=== PATIENT | male | born 1945 | race Caucasian/White ===

== ENCOUNTER 2017-11-10 15:57 | Inpatient (IN) ==
--- NOTE | 2017-11-10 23:30 | Internal Med History&Physical ---
Date of Encounter: 11/10/17 Time of Encounter: 08:00 Internal Medicine - H&P: HPI Chief complaint: fall History of present illness: Mr. Hollingsworth is a 72 year old male was no significant past medical history who was admitted to [facility] after he sustained a fall out of her wheelchair , his imaging studies revealed displaced right upper extremity fracture, orthopedic was consulted and decision was made that the patient will require open reduction internal fixation, the patient was transferred from [facility] for cardiac clearance , Past Med Surg Social Fam HX - Past Medical History Medical history: other Psychiatric history: no psych history - Social History Smoking Status: Current every day smoker Packs per day: 2 pack Smokeless Tobacco Status: No Alcohol use: none Drug use: none Internal Medicine - H&P: Meds Pregabalin [Lyrica] 300 mg PO BID 11/09/17 [History] OxyCODONE/APAP 5/325 [Percocet 5/325 MG] 1 each PO Q4HR PRN 11/10/17 [History] Zolpidem [Ambien] 5 mg PO HS 11/11/17 [History] Docusate [Colace] 100 mg PO BID capsule 11/13/17 [Rx] MOM Conc [MILK OF MAGNESIA conc] 5 ml PO HS PRN ud.liq 11/13/17 [Rx] OxyCODONE/APAP 5/325 [Percocet 5/325 MG] 1 each PO Q4HR PRN 4 Days #12 tablet [Rx] Silvasorb 1 appl TP DAILY tube 11/13/17 [Rx] 3 Allergy/AdvReac Type Severity Reaction Status Date / Time No Known Allergies Allergy Verified 11/09/17 20:12 All Systems PM: A 10-system review of systems was performed and is negative for pertinent findings except as documented above in the HPI. - Constitutional Vitals: Temp Pulse Resp BP Pulse Ox 98.9 F 75 16 119/54 97 11/10/17 23:23 11/10/17 23:23 11/10/17 23:23 11/10/17 23:23 11/10/17 23:23 Internal Med - H&P Results - Labs CBC & Chem 7: 11/13/17 01:27 11/13/17 01:27 - Assessment and plan (1) Right humeral fracture Status: Acute Assessment and plan: orthopedic was consulted, they requested cardiology clearance prior to proceeding with surgery, cardiology was consulted. Qualifiers: Encounter type: sequela Humerus Location: proximal Fracture type: closed Fracture morphology: other fracture Fracture alignment: displaced Qualified Code(s): S42.291S - Other displaced fracture of upper end of right humerus, sequela (2) DVT prophylaxis Status: Acute Assessment and plan: SC heparin - Time Spent With Patient Total time spent is greater than 50% in coordination of care (as documented) at patient's floor/unit and/or counseling patient:
[2017-11-10] MEDS ORDERED: Acetaminophen 325 MG TABLET PO PRN (23:31)
[2017-11-10] MEDS ORDERED: Naloxone 0.4 MG/ML INJ IVP PRN (23:31)
[2017-11-10] MEDS ORDERED: *HR* HYDROcodone/Acet 5/325 mg TABLET PO PRN (23:31)
[2017-11-10] MEDS ORDERED: 0.9 % Sodium Chloride 1,000 ML IVC SCH (23:45)
[2017-11-11 01:10] LABS: Basophils % 0.4 %; Eosinophils # 0.6 K/mcL (0.0-0.6); Hematocrit 25.5 % (37.5-50.1); Hemoglobin 8.4 g/dL (12.9-16.9); Immature Granulocytes % 1.3 % (0-4); Lymphocytes % 24.7 %; Mean Corpuscular HGB Conc 32.9 g/dL (31.6-35.5); Mean Corpuscular Hemoglobin 29.9 pg (28.0-33.3); Mean Corpuscular Volume 90.7 fL (83.0-100.0); Mean Platelet Volume 9.7 fL (9.4-12.4); Monocytes # 0.6 K/mcL (0.0-1.3); Monocytes % 7.3 %; Neutrophils # 4.8 K/mcL (1.6-8.9); Platelet Count 311 K/mcL (140-400); Red Blood Count 2.81 M/mcL (4.19-5.50); Red Cell Distribution Width 17.7 % (11.5-14.5); Segmented Neutrophils % 59.3 %
[2017-11-11 01:28] LABS: Alanine Aminotransferase 18 Units/L (7-52); Albumin 2.8 g/dL (3.5-5.7); Albumin/Globulin Ratio 0.8 (1.1-2.2); Alkaline Phosphatase 90 Units/L (34-104); Aspartate Amino Transferase 24 Units/L (13-39); BUN/Creatinine Ratio 27 (6-26); Bilirubin,Total 0.7 mg/dL (0.3-1.0); Blood Urea Nitrogen 21 mg/dL (8-23); Calcium 8.1 mg/dL (8.6-10.3); Carbon Dioxide 25 mEq/L (23-29); Chloride 104 mEq/L (98-107); Chol/HDL Ratio 4.4 (0-4.9); Cholesterol 136 mg/dL (< 200); Globulin 3.5 g/dL (2.4-3.5); Glucose 103 mg/dL (70-105); HDL Cholesterol 31 mg/dL (40-59); LDL Cholesterol,Calculated 87 mg/dL (0-99); Osmolality,Calculated 281 (280-300); Phosphorous 3.3 mg/dL (2.7-4.5); Potassium 4.4 mEq/L (3.5-5.1); Sodium 134 mEq/L (136-145); Total Protein 6.3 g/dL (6.4-8.9); Triglycerides 92 mg/dL (< 150); eGFR For African Americans > 60 (> 60); eGFR For Non-African Americans > 60 (> 60)
[2017-11-11 04:00] LABS: Bilirubin,Urine Negative (Negative); Blood,Urine Negative (Negative); Clarity,Urine Clear (Clear); Color,Urine Yellow (Yellow); Glucose,Urine (UA) Normal (Normal); Ketones,Urine Negative (Negative); Leukocyte Esterase,Urine Negative (Negative); Nitrite,Urine Negative (Negative); Protein,Urine Negative (Neg-Trace); Specific Gravity,Urine 1.011 (1.010-1.025); Urobilinogen,Urine Normal (Normal)
[2017-11-11] MEDS ORDERED: *HR* Heparin 5,000 UNIT/ML VIAL SQ SCH (06:00)
--- NOTE | 2017-11-11 06:50 | Orthopedic Consult Note ---
Date of Encounter: 11/11/17 Time of Encounter: 06:49 History of Present Illness HPI: Mr. Hollingsworth is a 72 year old male Status post fall out of her wheelchair yesterday patient was seen and admitted to [facility] history and physical examination was reviewed from the [facility] admission from yesterday. In the admission notes there is no discussion of cardiac issues. Patient only complains of pain in his arm. Denies any chest pain shortness of breath. Physical exam alert and oriented 3 Right upper extremity osseous swelling decreased motion secondary to pain Neurovascular intact Hematocrit 25 Patient has a displaced right upper extremity fracture. Requiring open reduction internal fixation. Patient is scheduled for surgery today. We reviewed the risks and benefits as well as recovery. All questions were answered. The patient agreed to this treatment plan and appeared to understand the plan is reviewed. Past Med Surg Social Fam HX - Past Medical History Medical history: other Psychiatric history: no psych history - Social History Smoking Status: Current every day smoker Packs per day: 2 pack Smokeless Tobacco Status: No Alcohol use: none Drug use: none Medications and Allergies Pregabalin [Lyrica] 300 mg PO BID 11/09/17 [History] OxyCODONE/APAP 5/325 [Percocet 5/325 MG] 1 each PO Q4HR PRN 11/10/17 [History] 3 Allergy/AdvReac Type Severity Reaction Status Date / Time No Known Allergies Allergy Verified 11/09/17 20:12 All Systems Reviewed: The remainder of the systems were reviewed and are negative Physical Exam - Constitutional Vitals: Temp Pulse Resp BP Pulse Ox 98.7 F 78 16 120/55 97 11/11/17 03:50 11/11/17 03:50 11/11/17 03:50 11/11/17 03:50 11/11/17 03:50 Results - Labs Result Diagrams: 11/11/17 00:29 11/11/17 00:29 Labs: Abnormal lab results RBC 2.81 M/mcL (4.19-5.50) L 11/11/17 00:29 Hgb 8.4 g/dL (12.9-16.9) L 11/11/17 00:29 Hct 25.5 % (37.5-50.1) L 11/11/17 00:29 RDW 17.7 % (11.5-14.5) H 11/11/17 00:29 APTT 24.0 Seconds (26.0-36.0) L 11/11/17 00:29 Sodium 134 mEq/L (136-145) L 11/11/17 00:29 BUN/Creatinine Ratio 27 (6-26) H 11/11/17 00:29 Calcium 8.1 mg/dL (8.6-10.3) L 11/11/17 00:29 Serum Total Protein 6.3 g/dL (6.4-8.9) L 11/11/17 00:29 Albumin 2.8 g/dL (3.5-5.7) L 11/11/17 00:29 Albumin/Globulin Ratio 0.8 (1.1-2.2) L 11/11/17 00:29 HDL Cholesterol 31 mg/dL (40-59) L 11/11/17 00:29 H & H 11/11/17 Range/Units 00:29 Hgb 8.4 L (12.9-16.9) g/dL Hct 25.5 L (37.5-50.1) % All other labs normal. Consult Discharge Plan - Plan Referrals: Kris Goetz MD [Primary Care Provider] -
[2017-11-11] MEDS ORDERED: *HR* Propofol 200 MG/20 ML VIAL IVP ONE (07:13)
[2017-11-11] MEDS ORDERED: *HR* FentaNYL (PF) 100 MCG/2 ML VIAL ONE (07:13)
[2017-11-11] MEDS ORDERED: *HR* Midazolam HCl 2 MG/2 ML VIAL ONE (07:13)
[2017-11-11] MEDS ORDERED: Lidocaine -MPF 2% 2 ML VIAL ONE (07:14)
[2017-11-11] MEDS ORDERED: *HR* Succinylcholine 200 MG/10 ML VIAL IVP ONE (07:14)
[2017-11-11] MEDS ORDERED: Albuterol 2.5 MG/3 ML NEBULIZER IH ONE ×2 (07:17→10:49)
--- NOTE | 2017-11-11 07:20 | Anesthesia Evaluation PreOp ---
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 History: Denies Any Significant HX Other Medical History: Denies Any Significant HX Anesthesia History: No Prior Anesthetic Complications Alcohol Use: none Drug use: none Medications and Allergies Pregabalin [Lyrica] 300 mg PO BID 11/09/17 [History] OxyCODONE/APAP 5/325 [Percocet 5/325 MG] 1 each PO Q4HR PRN 11/10/17 [History] 3 Allergy/AdvReac Type Severity Reaction Status Date / Time No Known Allergies Allergy Verified 11/09/17 20:12 - Meds/Allergy Pre-op Review Medications Reviewed: Yes Allergies Reviewed: Yes Beta Blockers on Current Med List: No Anesthesia Results - Labs 11/11/17 00:29 11/11/17 00:29 - Imaging EKG: pending Anesthesia Exam Vital Signs/O2 Sat/Glucose, Most Current Temp Pulse Resp BP Pulse Ox 11/11/17 07:04 97.9 F 71 18 153/74 98 11/11/17 03:50 98.7 F 78 16 120/55 97 Height: 5'7 Weight: 210 lbs NPO (# of Hours): MN Pain Scale: 0 - HEENT Pupil (Motor): Pupils equal, EOMI Oral Opening: Greater than 3 - PUBLIC HEALTH PROFESSOR LOC: Oriented PUBLIC HEALTH PROFESSOR Motor: Normal RUE, Normal LUE, Normal RLE, Normal LLE, Normal Face PUBLIC HEALTH PROFESSOR Sensory: Normal: RUE, LUE, RLE, LLE, Face - Cardiac Rhythm: Regular Murmur: None JVD: No Carotid Bruit: No - Pulmonary Breath Sounds: bilateral Clear Respiratory Effort: Symmetrical Anesthesia Assess/Plan ASA Score: 3 (Anemia) Modified Thais Scale for Level of Consciousness: Cooperative, oriented, and tranquil Anesthetic Plan: General, Regional Monitoring Plan: Standard Monitors Recovery Plan: PACU (Discussed GA and RA, agrees to proceed)
[2017-11-11] MEDS ORDERED: Dexamethasone 4 MG/ML VIAL ONE (07:33)
[2017-11-11] MEDS ORDERED: ROPIVACAINE HCL/PF 0.5% 30 ML VIAL ONE (07:34)
--- NOTE | 2017-11-11 08:03 | Anesthesia Procedures ---
Date of Encounter: 11/11/17 Time of Encounter: 07:20 Procedures: Anesthesia - Nerve Block Procedure Date: 11/11/17 Time: 07:45 Pre-op Diagnosis: Fracture Rt Humerus Surgical Procedure: ORIF Rt Humerus Checklist: Correct Patient Identifier Correct side: Right Blood Thinner: No Monitor Applied: EKG, BP, Pulse Oximetry Supplemental Oxygen via Nasal Cannula (L/min): 2 Sedation: Versed (mg): 1 Sedation: Fentanyl (mcg): 50 Indication: Post Op Analgesia Pre-op Neuro Deficits: No Block Type: Supraclavicular Catheter placed: No Depth at skin (cm): 3 Sterile Technique: Yes Ultrasound used: Yes Anatomy identified: Yes Visual spread of Local: Yes Neuro Stimulation: No Blood on Needle Aspiration: No Smooth Injection of Local: Yes Pain with Injection of Local: No Prep: Chlorhexadine Needle: 22 x 50 mm Stimuplex Local: Ropivacaine Volume (cc): 30 Number of Attempts: 1 Complications: None/effective block Vitals: Vital Signs/O2 Sat/Glucose, Most Current Temp Pulse Resp BP Pulse Ox 11/11/17 07:45 81 16 143/64 97 11/11/17 07:04 97.9 F 71 18 153/74 98
[2017-11-11] MEDS ORDERED: *HR* OxyCODONE Immed Rel 5 MG TABLET PO PRN (08:26)
[2017-11-11] MEDS ORDERED: *HR* FentaNYL (PF) 100 MCG/2 ML VIAL IVP PRN (08:26)
[2017-11-11] MEDS ORDERED: Ondansetron 4 MG/2 ML VIAL IVP ONE (08:26)
[2017-11-11] MEDS ORDERED: Pregabalin 75 MG CAPSULE PO SCH (09:00)
--- NOTE | 2017-11-11 09:21 | Orthopedic Operative Note ---
Date of procedure: 11/11/17 Pre-op diagnosis: Displaced comminuted right proximal humerus fracture Post-op diagnosis: same Procedure: Procedure: Right open reduction internal fixation Humerus proximal humerus Estimated blood loss: 100 cc Hardware: Synthes 8 hole proximal humeral locking plate, 3 3.5 cortical screws , 9 3.5 Locking screws 5 Arthrex cerclage fiber tapes Procedural Notes: Significant only displaced comminuted proximal humeral fracture. Long oblique fragments Operative procedure: The patient was brought to the operating room and placed on the operating room table. After general anesthesia was administered the operative arm was prepped and draped in the sterile surgical fashion The patient received IV antibiotics prior to skin incision. A standard extended deltopectoral approach was made to the humerus, the incision is made to the skin and subcutaneous tissue. Hemostasis was obtained with Bovie cautery. Using careful blunt dissection the deltopectoral interval was developed, exposing the fracture site. Patient had multiple fragments. There were reduced individually and secured with 4 Arthrex cerclage fiber tapes. The fifth one was used to secure the plate around the fracture site. Using fluoroscopic assistance a Synthes 8 hole proximal humeral locking plate was approximated to the anterior lateral surface was fixed distally in compression with one 3.5 cortical screw. It was fixed proximally with 5 3.5 locking screws. Fixation was completed with distal fixation with 3.5 locking screws and compression screws. Position of the hardware as well as fracture reduction found to be acceptable on fluoroscopic exam evaluation. The wound was irrigated with an antibacterial solution followed by saline. The PA close the shoulder, the deltopectoral closed with a running #1 PDS suture case tissues irrigated and closed deep with 0 PDS suture superficially with 0 PDS suture was closed with skin papo. patient was placed in a sterile dressing and brace. The patient was extubated, and then transferred to the recovery room in stable condition. Anesthesia: GETA Surgeon: Pedro Martines Was there an real estate legal assistant present: Yes Take Off Worker: Sierra Forbes Estimated blood loss (cc): 100 Condition: stable Disposition: PACU
--- NOTE | 2017-11-11 10:03 | Event Note ---
Date of Encounter: 11/11/17 Time of Encounter: 09:59 DBX used Slingshot. No shoulder motion. Bone Stimulator. Appt set for POW#1 - with Lulú Lu
[2017-11-11 10:43] LABS: Hematocrit 27.2 % (37.5-50.1); Hemoglobin 8.3 g/dL (12.9-16.9)
[2017-11-11] MEDS ORDERED: MOM Conc 10 ML UD.LIQ PO PRN (10:49)
[2017-11-11] MEDS ORDERED: Naloxone 0.4 MG/ML INJ IVP PRN (10:49)
[2017-11-11] MEDS ORDERED: Sennosides 8.6 MG TABLET PO PRN (10:49)
[2017-11-11] MEDS ORDERED: Ringers Solution, Lactated 1,000 ML IVC SCH (10:49)
[2017-11-11] MEDS ORDERED: traMADol 50 MG TABLET PO PRN (10:49)
[2017-11-11] MEDS ORDERED: *HR* OxyCODONE/APAP 5/325 TABLET PO PRN (10:49)
[2017-11-11] MEDS ORDERED: Ondansetron 4 MG/2 ML VIAL IVP PRN (10:49)
[2017-11-11] MEDS ORDERED: Temazepam 15 MG CAPSULE PO PRN (10:49)
--- NOTE | 2017-11-11 10:50 | Anesthesia Evaluation Post Op ---
Date of Encounter: 11/11/17 Time of Encounter: 11:00 - Vital Signs Vital Signs: Vital Signs/O2 Sat/Glucose, Most Current Temp Pulse Resp BP Pulse Ox 11/11/17 10:20 97.8 F 82 20 111/55 96 11/11/17 10:10 82 20 124/57 96 11/11/17 10:00 85 20 136/68 100 11/11/17 09:50 97.8 F 83 16 143/62 99 11/11/17 07:45 81 16 143/64 97 11/11/17 07:04 97.9 F 71 18 153/74 98 - Lungs Lungs: Clear Ascult./Percussion - Airway Airway: Non-obstructed - Cardiovascular Regular Rate - Mental Status Mental Status: Alert & Oriented, Answers Appropriately - Pain Pain Scale: 0 - Nausea Vomiting Nausea Vomiting: Not Present - Hydration Hydration: Ice chips - Discharge PostOp Status: Transfer Patient to floor
[2017-11-11] MEDS ORDERED: OXYCODONE Oral CONC 10 MG/0.5 ML ORAL.SYG SL PRN (12:35)
[2017-11-11] MEDS: CeFAZolin Pre 2,000 MG/100 ML 2,000 MG/100 ML BAG IVPB SCH ×2 (13:08→15:22)
--- NOTE | 2017-11-11 20:38 | Electrocardiograph Report ---
[address] [address] Test Date: 2017-11-11 Pat Name: Felix Hollingsworth Department: 101 Room: [facility] Gender: Statistician: [facility] : 1945 Requested By: Estela Benavides Order Number: [id number] Reading MD: Robert Carter Measurements Intervals [place] Rate: 70 P: 41 NC: 199 QRS: 53 QRSD: 122 T: 20 QT: 388 QTc: 409 Interpretive Statements SINUS RHYTHM Electronically Signed On 11-11-2017 20:36:18 EDT by Robert Carter
[2017-11-11] MEDS: Pregabalin 75 MG CAPSULE PO SCH (20:53)
--- NOTE | 2017-11-12 00:02 | Internal Med Progress Note ---
Date of Encounter: 11/11/17 Time of Encounter: 18:00 - Assessment and plan (1) Right humeral fracture Status: Acute Qualifiers: Encounter type: sequela Humerus Location: proximal Fracture type: closed Fracture morphology: other fracture Fracture alignment: displaced Qualified Code(s): S42.291S - Other displaced fracture of upper end of right humerus, sequela (2) Acute blood loss anemia Status: Acute Assessment and plan: I do not know what his baseline hemoglobin is. However, he lost some blood before, during and after the surgery. I will call it acute blood loss anemia. Will repeat his hemoglobin tomorrow morning. (3) DVT prophylaxis Status: Acute - Time Spent With Patient Total time spent is greater than 50% in coordination of care (as documented) at patient's floor/unit and/or counseling patient: 25 - 35 minutes - Subjective Interval history: The patient underwent open reduction internal fixation of proximal right humerus fracture today. His pain seems to be under control. No distress is seen. Denies difficulty breathing, coughing and wheezing. - Constitutional Vitals: Temp Pulse Resp BP Pulse Ox 98.8 F 87 18 114/58 98 11/11/17 19:28 11/11/17 19:28 11/11/17 19:28 11/11/17 19:28 11/11/17 19:28 General appearance: Present: A&O X 3, no acute distress, answers questions appropriately - Respiratory Respiratory exam: Present: CTAB. Absent: accessory muscle use, rales, rhonchi, wheezes - Cardiovascular Cardiovascular exam: Present: RRR, +S1, +S2. Absent: diastolic murmur, gallop, rubs, systolic murmur - GI/Abdominal GI/Abdominal exam: Present: normal bowel sounds, soft, no peritoneal signs. Absent: distended, tenderness - Extremities Exam Additional comments: Varicis surgical dressing/cast applied to his right arm. Internal Medicine: Result - Labs CBC & Chem 7: 11/13/17 01:27 11/13/17 01:27 Labs: Short CBC 11/11/17 11/11/17 Range/Units 00:29 10:12 WBC 8.0 (4.3-11.1) K/mcL Hgb 8.4 L 8.3 L (12.9-16.9) g/dL Hct 25.5 L 27.2 L (37.5-50.1) % Plt Count 311 (140-400) K/mcL Neutrophils # 4.8 (1.6-8.9) K/mcL BMP 11/11/17 00:29 Sodium 134 L Potassium 4.4 Chloride 104 Carbon Dioxide 25 BUN 21 Creatinine 0.78 Glucose 103 Calcium 8.1 L Cardiac Enzymes 11/11/17 11/11/17 11/11/17 Range/Units 00:29 05:34 10:12 Troponin I < 0.03 < 0.03 < 0.03 (< 0.04) ng/mL Liver Function 11/11/17 Range/Units 00:29 Total Bilirubin 0.7 (0.3-1.0) mg/dL AST 24 (13-39) Units/L ALT 18 (7-52) Units/L Alkaline Phosphatase 90 (34-104) Units/L Albumin 2.8 L (3.5-5.7) g/dL Urine 11/11/17 Range/Units 03:45 Urine Color Yellow (Yellow) Urine Clarity Clear (Clear) Urine pH 7.0 (5.0-8.0) pH Units Ur Specific [place] 1.011 (1.010-1.025) Urine Protein Negative (Neg-Trace) mg/dL Urine Glucose (UA) Normal (Normal) mg/dL - Impressions Impressions Shoulder X-Ray 11/11/17 07:57 IMPRESSION: Status post ORIF of right humeral fracture with intact hardware and near anatomic alignment. D/ / Maxwell Lares MD / Maxwell Lares MD Interpreting Provider: Maxwell Lares MD Fluoroscopy 11/11/17 08:20 IMPRESSION: Intraprocedural fluoroscopic spot images as above. See separate procedure report for more information. D/ / Fernando Jalloh MD / Fernando Jalloh MD Interpreting Provider: Fernando Jalloh MD - VTE Documentation of Mechanical Device: Venous foot pump, device Consult Discharge Plan - Plan Additional Instructions: WOUND CARE - SEE WOUND CARE CONSULT Referrals: Kris Goetz MD [Family Provider] - Prescriptions: OxyCODONE/APAP 5/325 [Percocet 5/325 MG] 1 each PO Q4HR PRN 4 Days #12 tablet PRN Reason: Moderate Pain 4-6
[2017-11-12] MEDS: *HR* OxyCODONE Immed Rel 5 MG TABLET PO PRN ×4 (08:57→22:50)
[2017-11-12] MEDS: Pregabalin 75 MG CAPSULE PO SCH ×2 (08:57→21:31)
[2017-11-12 17:21] LABS: Bilirubin,Urine Negative (Negative); Blood,Urine Negative (Negative); Clarity,Urine Clear (Clear); Color,Urine Yellow (Yellow); Glucose,Urine (UA) Normal (Normal); Ketones,Urine Negative (Negative); Leukocyte Esterase,Urine Negative (Negative); Nitrite,Urine Negative (Negative); Protein,Urine Negative (Neg-Trace); Urobilinogen,Urine Normal (Normal)
--- NOTE | 2017-11-12 21:42 | Internal Med Progress Note ---
Date of Encounter: 11/12/17 Time of Encounter: 19:00 - Assessment and plan (1) Right humeral fracture Status: Acute Assessment and plan: Surgically repaired yesterday. See orthopedic surgery notes.He's waiting for placement in an extended-care facility. Qualifiers: Encounter type: sequela Humerus Location: proximal Fracture type: closed Fracture morphology: other fracture Fracture alignment: displaced Qualified Code(s): S42.291S - Other displaced fracture of upper end of right humerus, sequela (2) Acute blood loss anemia Status: Acute Assessment and plan: This is secondary to right humerus fracture. Will repeat his hemoglobin tomorrow morning. The patient is hemodynamically stable at this time. (3) DVT prophylaxis Status: Acute - Time Spent With Patient Total time spent is greater than 50% in coordination of care (as documented) at patient's floor/unit and/or counseling patient: - Subjective Interval history: The patient feels good. His right arm pain is under control. Denies chest pain. Denies difficulty breathing, coughing and wheezing. Denies abdominal pain, nausea and vomiting. He makes good amounts of urine. - Constitutional Vitals: Temp Pulse Resp BP Pulse Ox 98.4 F 76 16 130/74 97 11/12/17 18:54 11/12/17 18:54 11/12/17 18:54 11/12/17 18:54 11/12/17 18:54 General appearance: Present: A&O X 3, no acute distress, answers questions appropriately - Respiratory Respiratory exam: Present: CTAB. Absent: accessory muscle use, rales, rhonchi, wheezes - Cardiovascular Cardiovascular exam: Present: RRR, +S1, +S2. Absent: diastolic murmur, gallop, rubs, systolic murmur - GI/Abdominal GI/Abdominal exam: Present: normal bowel sounds, soft, no peritoneal signs. Absent: distended, tenderness - Extremities Exam Additional comments: A surgical dressing/cast is applied to the right arm. Internal Medicine: Result - Labs CBC & Chem 7: 11/13/17 01:27 11/13/17 01:27 Labs: Short CBC 11/12/17 Range/Units 06:32 Hgb 7.0 L (12.9-16.9) g/dL Hct 22.0 L (37.5-50.1) % Urine 05/24/18 Range/Units 17:05 Urine Color Yellow (Yellow) Urine Clarity Clear (Clear) Urine pH 6.0 (5.0-8.0) pH Units Ur Specific [place] 1.020 (1.010-1.025) Urine Protein Negative (Neg-Trace) mg/dL Urine Glucose (UA) Normal (Normal) mg/dL - VTE Documentation of Mechanical Device: Venous foot pump, device Consult Discharge Plan - Plan Additional Instructions: WOUND CARE - SEE WOUND CARE CONSULT Referrals: Kris Goetz MD [Family Provider] - Prescriptions: OxyCODONE/APAP 5/325 [Percocet 5/325 MG] 1 each PO Q4HR PRN 4 Days #12 tablet PRN Reason: Moderate Pain 4-6
[2017-11-13 02:27] LABS: Hematocrit 24.3 % (37.5-50.1); Hemoglobin 7.7 g/dL (12.9-16.9)
[2017-11-13 02:46] LABS: BUN/Creatinine Ratio 23 (6-26); Blood Urea Nitrogen 22 mg/dL (8-23); Calcium 8.1 mg/dL (8.6-10.3); Carbon Dioxide 25 mEq/L (23-29); Chloride 104 mEq/L (98-107); Glucose 110 mg/dL (70-105); Osmolality,Calculated 284 (280-300); Potassium 4.4 mEq/L (3.5-5.1); Sodium 135 mEq/L (136-145); eGFR For African Americans > 60 (> 60); eGFR For Non-African Americans > 60 (> 60)
[2017-11-13] MEDS: Pregabalin 75 MG CAPSULE PO SCH (09:25)
[2017-11-13] MEDS ORDERED: Silvasorb 44.4 ML TUBE TP SCH (11:30)
[2017-11-13] MEDS: *HR* OxyCODONE Immed Rel 5 MG TABLET PO PRN (12:25)
[2017-11-13 15:40] VITALS: BP 124/73
--- NOTE | 2017-11-13 18:23 | Discharge Summary ---
Orders not resulted at time of discharge: Pending orders 11/11/17 XR humerus LT [XR] Routine 11/11/17 07:40 Red Blood Cells [BBK] Stat Type and Screen [BBK] Stat 11/11/17 07:44 US anesthesia pain block [US] Routine 11/12/17 06:00 ECG 12 lead ECG [ECG] AM 0600 Date of Encounter: 11/13/17 Time of Encounter: 18:20 - Discharge Diagnosis (1) Right humeral fracture Priority: Primary Status: Acute Qualifiers: Encounter type: sequela Humerus Location: proximal Fracture type: closed Fracture morphology: other fracture Fracture alignment: displaced Qualified Code(s): S42.291S - Other displaced fracture of upper end of right humerus, sequela Hospital course: Mr. Hollingsworth is a 72 year old male.We admitted this patient to the hospital shortly after he had experienced a fall from a wheel-chair. She sustained displaced right proximal humerus fracture. He underwent the open reduction and internal fixation see orthopaedics notes. He did well during and after the surgery. He doesn't have any other significant medical problems.We discharged her to a nursing home facility. Discharge discussed with: patient, family, nurse, case management - Time Spent with Patient Total time spent providing and/or coordinating discharge services: Greater than 30 minutes (35 minutes.) - Discharge Medications Prescriptions: OxyCODONE/APAP 5/325 [Percocet 5/325 MG] 1 each PO Q4HR PRN 4 Days #12 tablet PRN Reason: Moderate Pain 4-6 Home Medications: Pregabalin [Lyrica] 300 mg PO BID 11/09/17 [History] Zolpidem [Ambien] 5 mg PO HS 11/11/17 [History] Docusate [Colace] 100 mg PO BID capsule 11/13/17 [Rx] OxyCODONE/APAP 5/325 [Percocet 5/325 MG] 1 each PO Q4HR PRN 4 Days #12 tablet [Rx] Silvasorb 1 appl TP DAILY tube 11/13/17 [Rx] Aspirin 81 mg PO DAILY 11/23/17 [History] Protein Supplement [Promod] 30 ml PO DAILY 11/23/17 [History] Duloxetine HCl [Cymbalta] 60 mg PO DAILY 11/24/17 [History] Allergies/Adverse Reactions: 3 Allergy/AdvReac Type Severity Reaction Status Date / Time No Known Allergies Allergy Verified 11/23/17 21:01 Date of admission: 11/10/17 23:31 Primary care physician: PCP NONE Consults: 11/10/17 23:34 Consult to Physician [CONS] Routine Consulting Provider: Min Roland Reason for Consult: cardiology clearance Time Notified: 23:35 Call Completed: No 11/11/17 10:49 Consult to Occupational Therapy [CONS] Routine Comment: post shoulder surgery Reason for Consult: post shoulder surgery Does patient have active BEDREST order?: No Is patient medically & hemodynamically stable?: Yes Consult to Physical Therapy [CONS] Routine Comment: post shoulder surgery Reason for Consult: post shoulder surgery Does patient have active BEDREST order?: No Is patient medically & hemodynamically stable?: Yes RT Post Op Consult [CONS] Routine 11/11/17 17:18 Consult to [place] Warm Up [CONS] Routine Reason for SW Consult: discharge planning 11/12/17 16:45 Consult to Wound Care [CONS] Routine Reason for Consult: Multiple wounds; a snf bed-bound resident. Time Notified: 16:45 Call Completed: Yes Discharging clinician: Camilo Escobar Anticipated date of discharge: 11/13/17 - Constitutional Vitals: Temp Pulse Resp BP Pulse Ox 98.5 F 87 16 124/73 96 11/13/17 14:10 11/13/17 14:10 11/13/17 14:10 11/13/17 14:10 11/13/17 14:10 General appearance: Present: A&O X 3, no acute distress, answers questions appropriately - Respiratory Respiratory exam: Present: CTAB. Absent: rales, wheezes, tachypnea - Cardiovascular Cardiovascular exam: Present: RRR. Absent: diastolic murmur, gallop, systolic murmur - GI/Abdominal GI/Abdominal exam: Present: normal bowel sounds, soft, no peritoneal signs. Absent: distended, tenderness - Patient Status Disposition: Transfer SNF Condition: Fair Functional capacity at discharge: wheelchair bound Overall status at discharge: patient is not back to baseline - Discharge Instructions Follow Up With: Kris Goetz MD [Family Provider] - Additional Instructions: WOUND CARE - SEE WOUND CARE CONSULT - Diet and Activity Activity: increase activity as tolerated - VTE Documentation of Mechanical Device: Venous foot pump, device
--- NOTE | 2017-11-13 18:58 | Physician Discharge Referral ---
ExtendedCare Referral Info Transfer To: SNF Provider in Charge after Transfer: Other Institutional Level of Care: Skilled - Diagnosis (1) Right humeral fracture Status: Acute Prognosis: Fair Aware of Diagnosis: Patient, Family Aware of Prognosis: Patient, Family - Transfer Medications Prescriptions: OxyCODONE/APAP 5/325 [Percocet 5/325 MG] 1 each PO Q4HR PRN 4 Days #12 tablet PRN Reason: Moderate Pain 4-6 Home Medications: Pregabalin [Lyrica] 300 mg PO BID 11/09/17 [History] OxyCODONE/APAP 5/325 [Percocet 5/325 MG] 1 each PO Q4HR PRN 11/10/17 [History] Zolpidem [Ambien] 5 mg PO HS 11/11/17 [History] Docusate [Colace] 100 mg PO BID capsule 11/13/17 [Rx] MOM Conc [MILK OF MAGNESIA conc] 5 ml PO HS PRN ud.liq 11/13/17 [Rx] OxyCODONE/APAP 5/325 [Percocet 5/325 MG] 1 each PO Q4HR PRN 4 Days #12 tablet [Rx] Silvasorb 1 appl TP DAILY tube 11/13/17 [Rx] Allergies/Adverse Reactions: 3 Allergy/AdvReac Type Severity Reaction Status Date / Time No Known Allergies Allergy Verified 11/09/17 20:12 - Respiratory Orders Smoking Cessation: Smoking cessation has been advised. For more information, call the [place] Tobacco Quit Line at 8-685-BBND-NOW. - Rehabiliation Orders Rehab Potential: Fair CERTIFICATION: I certify that the transfer of the above named patient to an Extended Care Facility is necessary for the continuing treatment of the diagnosis listed. The above information is true and accurate reflection of patient's current condition. Confidential - Redisclosure prohibited without a patient's written consent.
== END 2017-11-13 19:27 | DRG 494 ==
LOC: 3NENU → SUATTDRO 23:31
PROVIDERS: ADMIT Internal Medicine Nephrology; ATTEND Internal Medicine

== ENCOUNTER 2017-11-23 22:04 | Inpatient (IN) ==
[2017-11-24 01:26] LABS: Basophils % 0.3 %; Eosinophils # 0.6 K/mcL (0.0-0.6); Eosinophils % 5.9 %; Hematocrit 19.9 % (37.5-50.1); Hemoglobin 6.2 g/dL (12.9-16.9); Immature Granulocytes % 1.6 % (0-4); Lymphocytes # 1.7 K/mcL (0.6-4.6); Lymphocytes % 16.5 %; Mean Corpuscular HGB Conc 31.2 g/dL (31.6-35.5); Mean Corpuscular Hemoglobin 29.2 pg (28.0-33.3); Mean Corpuscular Volume 93.9 fL (83.0-100.0); Mean Platelet Volume 9.3 fL (9.4-12.4); Monocytes # 0.6 K/mcL (0.0-1.3); Monocytes % 5.2 %; Neutrophils # 7.4 K/mcL (1.6-8.9); Nucleated Red Blood Cells 0.2 /100 WBC (0); Platelet Count 403 K/mcL (140-400); Red Blood Count 2.12 M/mcL (4.19-5.50); Red Cell Distribution Width 18.4 % (11.5-14.5); Segmented Neutrophils % 70.5 %
[2017-11-24 01:31] LABS: INR 1.1; Prothrombin Time 11.8 Seconds (9.4-12.1)
[2017-11-24 01:47] LABS: Alanine Aminotransferase 13 Units/L (7-52); Albumin 2.7 g/dL (3.5-5.7); Albumin/Globulin Ratio 0.8 (1.1-2.2); Alkaline Phosphatase 115 Units/L (34-104); Aspartate Amino Transferase 17 Units/L (13-39); BUN/Creatinine Ratio 24 (6-26); Bilirubin,Total 0.5 mg/dL (0.3-1.0); Blood Urea Nitrogen 18 mg/dL (8-23); Calcium 8.1 mg/dL (8.6-10.3); Carbon Dioxide 20 mEq/L (23-29); Chloride 106 mEq/L (98-107); Globulin 3.2 g/dL (2.4-3.5); Glucose 104 mg/dL (70-105); Osmolality,Calculated 280 (280-300); Potassium 3.9 mEq/L (3.5-5.1); Sodium 134 mEq/L (136-145); Total Protein 5.9 g/dL (6.4-8.9); eGFR For African Americans > 60 (> 60); eGFR For Non-African Americans > 60 (> 60)
[2017-11-24] MEDS ORDERED: Acetaminophen 325 MG TABLET PO PRN (02:19)
[2017-11-24] MEDS ORDERED: Naloxone 0.4 MG/ML INJ IVP PRN (02:19)
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
[2017-11-24 03:43] LABS: % Iron Saturation 11 % (20-55); Ferritin 108 ng/ml (20-250); Iron 32 mcg/dL (65-175); Transferrin 204 mg/dL (203-362)
[2017-11-24 04:12] LABS: Folate 18.2 ng/mL (3.0-16.0)
[2017-11-24] MEDS ORDERED: 0.9 % Sodium Chloride 250 ML ONE (04:18)
[2017-11-24] MEDS ORDERED: Pantoprazole 40 MG VIAL IVP SCH (06:30)
[2017-11-24] MEDS: Pantoprazole 40 MG VIAL IVP SCH ×2 (07:19→17:18)
[2017-11-24] MEDS: Nicotine 14 MG PATCH.TD24 TD SCH (07:29)
[2017-11-24 11:08] LABS: Basophils % 0.4 %; Eosinophils # 0.5 K/mcL (0.0-0.6); Eosinophils % 4.9 %; Hemoglobin 7.2 g/dL (12.9-16.9); Immature Granulocytes % 1.5 % (0-4); Lymphocytes # 1.5 K/mcL (0.6-4.6); Lymphocytes % 14.7 %; Mean Corpuscular HGB Conc 31.3 g/dL (31.6-35.5); Mean Corpuscular Hemoglobin 28.8 pg (28.0-33.3); Mean Platelet Volume 9.4 fL (9.4-12.4); Monocytes # 0.5 K/mcL (0.0-1.3); Monocytes % 5.3 %; Neutrophils # 7.3 K/mcL (1.6-8.9); Platelet Count 383 K/mcL (140-400); Red Cell Distribution Width 17.8 % (11.5-14.5); Segmented Neutrophils % 73.2 %
[2017-11-24 11:31] LABS: BUN/Creatinine Ratio 22 (6-26); Blood Urea Nitrogen 16 mg/dL (8-23); Calcium 8.3 mg/dL (8.6-10.3); Carbon Dioxide 22 mEq/L (23-29); Chloride 109 mEq/L (98-107); Glucose 94 mg/dL (70-105); Osmolality,Calculated 285 (280-300); Potassium 4.4 mEq/L (3.5-5.1); Sodium 137 mEq/L (136-145); eGFR For African Americans > 60 (> 60); eGFR For Non-African Americans > 60 (> 60)
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
[2017-11-24] MEDS ORDERED: Polyethylene Glycol 3350 255 GM POWDER PO ONE (13:49)
[2017-11-24 16:39] LABS: Hematocrit 22.4 % (37.5-50.1)
[2017-11-24] MEDS ORDERED: SODIUM CHLORIDE/NAHCO3/KCL/PEG 4,000 ML SOLN.RECON PO ONE (17:00)
[2017-11-24] MEDS: *HR* OxyCODONE/APAP 5/325 TABLET PO PRN ×2 (17:52→22:08)
--- NOTE | 2017-11-24 18:55 | Event Note ---
Date of Encounter: 11/24/17 Time of Encounter: 11:00 Patient evaluated by nocturnalist earlier this morning and by myself EGD/colonoscopy scheduled for 11/25/17 per GI for acute blood loss anemia workup
[2017-11-24] MEDS: Pregabalin 75 MG CAPSULE PO SCH (22:08)
[2017-11-25 01:21] LABS: Hematocrit 20.9 % (37.5-50.1); Hemoglobin 6.6 g/dL (12.9-16.9)
[2017-11-25] MEDS: Pantoprazole 40 MG VIAL IVP SCH ×2 (06:02→16:26)
[2017-11-25] MEDS: Pregabalin 75 MG CAPSULE PO SCH ×2 (07:33→20:55)
[2017-11-25] MEDS: Nicotine 14 MG PATCH.TD24 TD SCH (07:34)
--- NOTE | 2017-11-25 10:44 | Electrocardiograph Report ---
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
[2017-11-25] MEDS ORDERED: Propofol 500 MG/50 ML INFUS..BTL ONE (12:14)
[2017-11-25] MEDS ORDERED: Lidocaine -MPF 2% 2 ML VIAL ONE (12:14)
--- NOTE | 2017-11-25 12:37 | Anesthesia Evaluation PreOp ---
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 leg Amp.) Alcohol Use: none Drug use: none Medications and Allergies Pregabalin [Lyrica] 300 mg PO BID 11/09/17 [History] Zolpidem [Ambien] 5 mg PO HS 11/11/17 [History] Docusate [Colace] 100 mg PO BID capsule 11/13/17 [Rx] OxyCODONE/APAP 5/325 [Percocet 5/325 MG] 1 each PO Q4HR PRN 4 Days #12 tablet [Rx] Silvasorb 1 appl TP DAILY tube 11/13/17 [Rx] Aspirin 81 mg PO DAILY 11/23/17 [History] Protein Supplement [Promod] 30 ml PO DAILY 11/23/17 [History] Duloxetine HCl [Cymbalta] 60 mg PO DAILY 11/24/17 [History] 3 Allergy/AdvReac Type Severity Reaction Status Date / Time No Known Allergies Allergy Verified 11/23/17 21:01 - Meds/Allergy Pre-op Review Medications Reviewed: Yes Allergies Reviewed: Yes Beta Blockers on Current Med List: No Anesthesia Results - Labs 11/25/17 00:58 11/24/17 10:46 11/24/17 EV/EV echocardiogram Impressions: LVEF 60%. Mild left ventricular diastolic dysfunction. Mild concentric left ventricular hypertrophy. Normal right ventricular structure and function. Mild mitral regurgitation. Severely calcified aortic valve leaflets. Severe aortic stenosis. PV 4.6m/s, MG 47 mmHg, DI 0.27, JIMENEZ 0.85cm2 Mild-moderate aortic regurgitation. No pulmonary hypertension on this study - no significant TR gradient. Abnormal findings communicated to ordering provider. 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
[2017-11-25] MEDS ORDERED: Furosemide 20 MG/2 ML VIAL IVP ONE (15:43)
--- NOTE | 2017-11-25 16:11 | Internal Med Progress Note ---
Date of Encounter: 11/25/17 Time of Encounter: 11:00 - Assessment and plan (1) Anemia Current Visit: Yes Status: Acute Assessment and plan: Acute on chronic anemia of unknown etiology of normocytic anemia. Anemia present prior to surgery but no record of hemoglobin prior to 2 weeks ago ; no significant drop in hemoglobin immediately after surgery. Guaiac positive. Patient was transfused 1 unit of packed red blood cells and hemoglobin today 6.6 Will transfuse an addition two units of packed red blood cells GI was consulted and colonoscopy showed no acute bleeding. Will continue to monitor Qualifiers: Anemia type: unspecified type Qualified Code(s): D64.9 - Anemia, unspecified (2) Heart murmur, systolic Current Visit: Yes Status: Acute Assessment and plan: Patient with new systolic murmur suspect secondary to acute on chronic blood loss anemia Echocardiogram on 11/24/17 showed LVEF of 60% with mild left ventricle diastolic dysfunction with severe aortic stenosis with a PV of 4.6 m/s and MG 47 mmHg Will consult cardiology in appreciate any further recommendations. (3) Tobacco use Current Visit: Yes Status: Acute Assessment and plan: smokes 2ppd. Nicotine patch given. (4) Leg ulcer, left Current Visit: Yes Status: Acute Assessment and plan: multiple ulcers that have been there for about 3 months and family is unsure if they are getting better. custodial has been attending to the wounds. Wound care consulted. Qualifiers: Non-pressure ulcer stage: limited to breakdown of skin Qualified Code(s): L97.921 - Non-pressure chronic ulcer of unspecified part of left lower leg limited to breakdown of skin (5) DVT prophylaxis Current Visit: Yes Status: Acute Assessment and plan: ICDs. - Time Spent With Patient Total time spent is greater than 50% in coordination of care (as documented) at patient's floor/unit and/or counseling patient: - Subjective Interval history: Patient this morning schedule for colonoscopy Patient also with drop in hemoglobin - Constitutional Vitals: Temp Pulse Resp BP Pulse Ox 98.7 F 72 16 106/55 98 11/25/17 14:31 11/25/17 14:31 11/25/17 14:31 11/25/17 14:31 11/25/17 14:31 General appearance: Present: no acute distress - Respiratory Respiratory exam: Present: CTAB. Absent: accessory muscle use, rales, rhonchi, wheezes - Cardiovascular Cardiovascular exam: Present: RRR, +S1, +S2, systolic murmur. Absent: diastolic murmur, gallop, rubs - Skin Skin exam: Present: pallor Internal Medicine: Result - Labs CBC & Chem 7: 11/25/17 00:58 11/24/17 10:46 Labs: Short CBC 11/24/17 11/25/17 Range/Units 15:59 00:58 Hgb 7.0 L 6.6 L (12.9-16.9) g/dL Hct 22.4 L 20.9 L (37.5-50.1) % - ABG Interpretation ABG results: PT/INR, D-dimer PT 11.8 Seconds (9.4-12.1) 11/24/17 01:15 - VTE Documentation of Mechanical Device: Venous foot pump, device Consult Discharge Plan - Plan Referrals: Kris Goetz MD [Family Provider] - Ludwin Mendez MD [Primary Care Provider] -
[2017-11-25 23:09] LABS: Hematocrit 26.1 % (37.5-50.1); Hemoglobin 8.4 g/dL (12.9-16.9)
[2017-11-26 03:30] LABS: Hematocrit 28.2 % (37.5-50.1)
[2017-11-26 03:33] LABS: Hemoglobin 8.9 g/dL (12.9-16.9)
[2017-11-26] MEDS: Pantoprazole 40 MG VIAL IVP SCH (05:23)
[2017-11-26 06:54] LABS: Hematocrit 26.6 % (37.5-50.1); Hemoglobin 8.6 g/dL (12.9-16.9)
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
[2017-11-26 10:06] LABS: Basophils % 0.5 %; Eosinophils # 0.5 K/mcL (0.0-0.6); Hematocrit 27.6 % (37.5-50.1); Hemoglobin 8.8 g/dL (12.9-16.9); Immature Granulocytes % 0.8 % (0-4); Lymphocytes # 1.3 K/mcL (0.6-4.6); Lymphocytes % 16.6 %; Mean Corpuscular HGB Conc 31.9 g/dL (31.6-35.5); Mean Corpuscular Hemoglobin 28.8 pg (28.0-33.3); Mean Corpuscular Volume 90.2 fL (83.0-100.0); Mean Platelet Volume 9.3 fL (9.4-12.4); Monocytes # 0.5 K/mcL (0.0-1.3); Monocytes % 6.1 %; Neutrophils # 5.6 K/mcL (1.6-8.9); Platelet Count 368 K/mcL (140-400); Red Blood Count 3.06 M/mcL (4.19-5.50); Red Cell Distribution Width 18.3 % (11.5-14.5)
[2017-11-26 10:25] LABS: BUN/Creatinine Ratio 19 (6-26); Blood Urea Nitrogen 16 mg/dL (8-23); Calcium 8.2 mg/dL (8.6-10.3); Carbon Dioxide 22 mEq/L (23-29); Chloride 110 mEq/L (98-107); Glucose 92 mg/dL (70-105); Osmolality,Calculated 289 (280-300); Potassium 4.2 mEq/L (3.5-5.1); Sodium 139 mEq/L (136-145); eGFR For African Americans > 60 (> 60); eGFR For Non-African Americans > 60 (> 60)
[2017-11-26 10:40] VITALS: BP 130/73
[2017-11-26] MEDS: Nicotine 14 MG PATCH.TD24 TD SCH (10:43)
[2017-11-26] MEDS: Pregabalin 75 MG CAPSULE PO SCH (10:44)
[2017-11-26] MEDS: *HR* OxyCODONE/APAP 5/325 TABLET PO PRN ×2 (10:59→16:45)
[2017-11-26 11:24] LABS: Hematocrit 27.4 % (37.5-50.1); Hemoglobin 8.6 g/dL (12.9-16.9)
--- NOTE | 2017-11-26 12:32 | Event Note ---
Date of Encounter: 11/26/17 Time of Encounter: 12:30 - Cardiology Event Note Discussed and reviewed with Dr. Carter, in setting of recent anemia and blood loss recommend follow-up in outpatient setting for further workup and evaluation regarding severe aortic stenosis if patient desires. Again at that juncture can consider catheterization and potential surgical intervention versus TAVR. Follow-up arranged. We will sign off. Reconsult as needed.
--- NOTE | 2017-11-26 13:01 | Physician Discharge Referral ---
ExtendedCare Referral Info Institutional Level of Care: Skilled - Diagnosis (1) Anemia Status: Acute (2) Heart murmur, systolic Status: Acute (3) Tobacco use Status: Acute (4) Leg ulcer, left Status: Acute (5) DVT prophylaxis Status: Acute - Transfer Medications Prescriptions: OxyCODONE/APAP 5/325 [Percocet 5/325 MG] 1 each PO Q4HR PRN 4 Days #12 tablet PRN Reason: Moderate Pain 4-6 Pregabalin [Lyrica] 300 mg PO BID 3 Days #6 capsule Home Medications: Zolpidem [Ambien] 5 mg PO HS 11/11/17 [History] Docusate [Colace] 100 mg PO BID capsule 11/13/17 [Rx] Silvasorb 1 appl TP DAILY tube 11/13/17 [Rx] Aspirin 81 mg PO DAILY 11/23/17 [History] Protein Supplement [Promod] 30 ml PO DAILY 11/23/17 [History] Duloxetine HCl [Cymbalta] 60 mg PO DAILY 11/24/17 [History] OxyCODONE/APAP 5/325 [Percocet 5/325 MG] 1 each PO Q4HR PRN 4 Days #12 tablet [Rx] Pregabalin [Lyrica] 300 mg PO BID 3 Days #6 capsule 11/26/17 [Rx] Allergies/Adverse Reactions: 3 Allergy/AdvReac Type Severity Reaction Status Date / Time No Known Allergies Allergy Verified 11/23/17 21:01 - Respiratory Orders Smoking Cessation: Smoking cessation has been advised. For more information, call the [place] Tobacco Quit Line at 8-383-HCYC-NOW. CERTIFICATION: I certify that the transfer of the above named patient to an Extended Care Facility is necessary for the continuing treatment of the diagnosis listed. The above information is true and accurate reflection of patient's current condition. Confidential - Redisclosure prohibited without a patient's written consent.
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
== END 2017-11-26 17:03 | DRG 812 ==
LOC: 3ANU → SUATTDRO 11-24 00:58
PROVIDERS: ADMIT Internal Medicine; ATTEND Hospitalist
PROC: ENDOEBX (2017-11-25 13:15)

== ENCOUNTER 2018-09-24 18:31 | Inpatient (IN) ==
[2018-09-24] MEDS ORDERED: Acetaminophen 325 MG TABLET PO PRN (23:23)
[2018-09-24] MEDS ORDERED: Naloxone 0.4 MG/ML INJ IVP PRN (23:23)
[2018-09-24] MEDS ORDERED: Ondansetron 4 MG/2 ML VIAL IVP PRN (23:23)
[2018-09-24] MEDS ORDERED: Ipratropium/Albuterol Neb 3 ML IH PRN (23:28)
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
[2018-09-25] MEDS: *HR* Heparin 5,000 UNIT/ML VIAL SQ SCH ×2 (00:37→05:39)
[2018-09-25] MEDS: *HR* OxyCODONE/APAP 5/325 TABLET PO PRN ×2 (00:37→16:50)
[2018-09-25] MEDS: 0.9 % Sodium Chloride w KCl 20 MEQ/1,000 ML MLS IVC SCH ×2 (00:38→15:22)
[2018-09-25 01:43] LABS: Alanine Aminotransferase 13 Units/L (7-52); Albumin 2.7 g/dL (3.5-5.7); Albumin/Globulin Ratio 0.8 (1.1-2.2); Alkaline Phosphatase 70 Units/L (34-104); Aspartate Amino Transferase 21 Units/L (13-39); BUN/Creatinine Ratio 38 (6-26); Bilirubin,Total 0.3 mg/dL (0.3-1.0); Blood Urea Nitrogen 32 mg/dL (8-23); Calcium 8.2 mg/dL (8.6-10.3); Carbon Dioxide 24 mEq/L (23-29); Chloride 106 mEq/L (98-107); Chol/HDL Ratio 4.4 (0-4.9); Cholesterol 92 mg/dL (< 200); Globulin 3.5 g/dL (2.4-3.5); Glucose 141 mg/dL (70-105); HDL Cholesterol 21 mg/dL (40-59); LDL Cholesterol,Calculated 42 mg/dL (0-99); Osmolality,Calculated 297 (280-300); Phosphorous 3.1 mg/dL (2.7-4.5); Potassium 3.8 mEq/L (3.5-5.1); Sodium 139 mEq/L (136-145); Total Protein 6.2 g/dL (6.4-8.9); Triglycerides 146 mg/dL (< 150); eGFR For Non-African Americans > 60 (> 60)
[2018-09-25 02:15] LABS: Basophils % 0.3 %; Eosinophils # 0.5 K/mcL (0.0-0.6); Eosinophils % 4.3 %; Hematocrit 22.4 % (37.5-50.1); Hemoglobin 6.9 g/dL (12.9-16.9); Immature Granulocytes % 2.5 % (0-4); Lymphocytes # 2.2 K/mcL (0.6-4.6); Mean Corpuscular HGB Conc 30.8 g/dL (31.6-35.5); Mean Corpuscular Hemoglobin 25.8 pg (28.0-33.3); Mean Corpuscular Volume 83.9 fL (83.0-100.0); Mean Platelet Volume 10.1 fL (9.4-12.4); Monocytes # 0.7 K/mcL (0.0-1.3); Monocytes % 6.5 %; Neutrophils # 7.4 K/mcL (1.6-8.9); Nucleated Red Blood Cells 0.2 /100 WBC (0); Platelet Count 296 K/mcL (140-400); Red Blood Count 2.67 M/mcL (4.19-5.50); Red Cell Distribution Width 18.6 % (11.5-14.5); Segmented Neutrophils % 66.4 %
[2018-09-25] MEDS: Vitamin B Complex/Vit C/Vit E 1 EACH TABLET PO SCH (08:42)
[2018-09-25] MEDS: Desitin (Zinc Oxide) 56 GM TUBE TP SCH (08:42)
[2018-09-25] MEDS ORDERED: Aspirin 81 MG TAB.CHEW PO SCH (09:00)
[2018-09-25 09:31] LABS: Bilirubin,Urine Negative (Negative); Blood,Urine Negative (Negative); Clarity,Urine Clear (Clear); Color,Urine Yellow (Yellow); Glucose,Urine (UA) Normal (Normal); Ketones,Urine Negative (Negative); Leukocyte Esterase,Urine Negative (Negative); Nitrite,Urine Negative (Negative); Protein,Urine Negative (Neg-Trace); Specific Gravity,Urine 1.012 (1.010-1.025); Urobilinogen,Urine Normal (Normal)
[2018-09-25] MEDS ORDERED: 0.9 % Sodium Chloride 250 ML ONE (10:08)
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
--- NOTE | 2018-09-25 17:03 | Event Note ---
Date of Encounter: 09/25/18 Time of Encounter: 17:00 Patient was seen and examined. Admitted by one of my colleagues overnight. Please see H&P for details. Here with weakness and AMS. AMS is a non issue at the moment. Patient noted to have a hgb of 6.9 this am. Transfusing him PRBCs. FOBT is ordered. EGD and colonoscopy unremarkable last November 2017. Cardiology evaluating for elevated trops and severe .
[2018-09-25] MEDS: Pantoprazole 40 MG VIAL IVP SCH (18:38)
[2018-09-25] MEDS ORDERED: *HR* OxyCODONE/APAP 5/325 TABLET PO ONE (23:56)
[2018-09-26] MEDS: Pantoprazole 40 MG VIAL IVP SCH ×2 (05:26→18:07)
[2018-09-26] MEDS: *HR* OxyCODONE/APAP 5/325 TABLET PO PRN (05:26)
[2018-09-26 07:23] LABS: Basophils % 0.2 %; Eosinophils # 0.3 K/mcL (0.0-0.6); Eosinophils % 4.2 %; Hematocrit 26.4 % (37.5-50.1); Hemoglobin 7.8 g/dL (12.9-16.9); Immature Granulocytes % 3.5 % (0-4); Lymphocytes # 1.2 K/mcL (0.6-4.6); Lymphocytes % 15.1 %; Mean Corpuscular HGB Conc 29.5 g/dL (31.6-35.5); Mean Corpuscular Hemoglobin 26.5 pg (28.0-33.3); Mean Corpuscular Volume 89.8 fL (83.0-100.0); Mean Platelet Volume 9.9 fL (9.4-12.4); Monocytes # 0.5 K/mcL (0.0-1.3); Monocytes % 6.1 %; Neutrophils # 5.7 K/mcL (1.6-8.9); Platelet Count 287 K/mcL (140-400); Red Blood Count 2.94 M/mcL (4.19-5.50); Red Cell Distribution Width 17.9 % (11.5-14.5); Segmented Neutrophils % 70.9 %
--- NOTE | 2018-09-26 07:34 | Internal Med Progress Note ---
Hospitalist Progress Note - Encounter Date of Encounter: 09/26/18 Time of Encounter: 07:32 - Subjective Interval History: Patient was seen and examined. Admitted by one of my colleagues yesterday for weakness and altered mental status. Mental status is worse than yesterday when I saw him. He is on A/O x1. Ex at bedside says last week he [facility] Not sure what was done about that. He has had no fever here. CT head unremarkable. CXR negative for pneumonia. Has a chronic cough. He was noted to have a hemoglobin of less than 7. And was transfused 2 units. I put him on IV PPI stopped his aspirin and heparin subcutaneous. He did have positive FOBT. EGD and colonoscopy unremarkable last November 2017. Cardiology evaluated for severe . Also had elevated troponins of 0.04 which has trended down. - Exam Vitals: Temp Pulse Resp BP Pulse Ox 97.9 F 97 16 198/72 70 09/26/18 04:04 09/26/18 04:04 09/26/18 04:04 09/26/18 04:04 09/26/18 04:04 Exam: GEN: NAD CVS: RRR. S1, S2, No m/r/g RESP: CTAB ABD: Soft, NT, ND, +BS EXT: No edema. 2+ DP. No rashes NEURO: Nonfocal. A/O x1 - Assessment and Plan (1) Severe aortic stenosis Current Visit: Yes Status: Chronic Assessment and Plan: Seen by cardiology. We can possibly contact cardiology again once he seen by GI. (2) Pressure injury of right ischium, stage 3 Current Visit: Yes Status: Chronic Assessment and Plan: Wound Care (3) Acute encephalopathy Current Visit: Yes Status: Acute Assessment and Plan: CT head and urinalysis are negative. CXR negative for pneumonia.. Mental status is worse than yesterday when I saw him. He is on A/O x1. Ex at bedside says last week he [facility] a [facility] Not sure what was done about that. He has had no fever here. Has a chronic cough but as mentioned CXR is negative. No leukocytosis. I have stopped oxycodone as he has received a couple of doses of that. Will check TSH, Vit B12, folate. (4) Dehydration Current Visit: Yes Status: Acute Assessment and Plan: Diuretics have been held. I stopped his IV fluids yesterday. We will continue to monitor. Follow-up on labs this morning. (5) DVT prophylaxis Current Visit: Yes Status: Acute Assessment and Plan: Stopped heparin subcutaneous and put him on SCDs. (6) Acute blood loss anemia Current Visit: No Status: Acute Assessment and Plan: Patient hemoglobin is less than 7 was transfused 1 unit PRBCs yesterday. Hgb 7.8 this am. I put him on IV PPI. Positive FOBT. GI is consulted. NPO after midnight. Seems to have had issues with low hemoglobin in the past medical history low hemoglobin above 8.9 that is in our record. EGD and colonoscopy unremarkable last November 2017. On iron supplements. - Time Spent with Patient Total time spent is greater than 50% in coordination of care (as documented) at patient's floor/unit and/or counseling patient: Internal Medicine: Result - Labs CBC & Chem 7: 09/26/18 06:53 09/26/18 06:53 Labs: Cardiac Enzymes 09/25/18 Range/Units 08:38 Troponin I < 0.03 (< 0.04) ng/mL Urine 09/25/18 Range/Units 08:54 Urine Color Yellow (Yellow) Urine Clarity Clear (Clear) Urine pH 6.0 (5.0-8.0) pH Units Ur Specific [place] 1.012 (1.010-1.025) Urine Protein Negative (Neg-Trace) mg/dL Urine Glucose (UA) Normal (Normal) mg/dL Consult Discharge Plan - Plan Referrals: Osbaldo Forman MD [Primary Care Provider] -
[2018-09-26 07:40] LABS: BUN/Creatinine Ratio 23 (6-26); Blood Urea Nitrogen 17 mg/dL (8-23); Calcium 8.5 mg/dL (8.6-10.3); Carbon Dioxide 25 mEq/L (23-29); Chloride 109 mEq/L (98-107); Glucose 122 mg/dL (70-105); Magnesium 2.2 mg/dL (1.6-2.6); Osmolality,Calculated 299 (280-300); Potassium 3.8 mEq/L (3.5-5.1); Sodium 143 mEq/L (136-145); eGFR For Non-African Americans > 60 (> 60)
[2018-09-26] MEDS: Vitamin B Complex/Vit C/Vit E 1 EACH TABLET PO SCH (08:32)
[2018-09-26] MEDS: Desitin (Zinc Oxide) 56 GM TUBE TP SCH (08:33)
--- NOTE | 2018-09-26 08:34 | Electrocardiograph Report ---
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
[2018-09-26] MEDS ORDERED: *HR* HYDROcodone/Acet 5/325 mg TABLET PO ONE (15:29)
[2018-09-26] MEDS: Pregabalin 75 MG CAPSULE PO SCH (20:17)
[2018-09-26] MEDS ORDERED: MENTHOL TP SCH (21:00)
[2018-09-27 03:53] LABS: Basophils % 0.2 %; Eosinophils # 0.3 K/mcL (0.0-0.6); Eosinophils % 3.7 %; Hematocrit 26.9 % (37.5-50.1); Immature Granulocytes % 2.3 % (0-4); Lymphocytes # 1.8 K/mcL (0.6-4.6); Lymphocytes % 20.2 %; Mean Corpuscular HGB Conc 29.7 g/dL (31.6-35.5); Mean Corpuscular Hemoglobin 26.8 pg (28.0-33.3); Mean Corpuscular Volume 90.3 fL (83.0-100.0); Mean Platelet Volume 9.9 fL (9.4-12.4); Monocytes # 0.6 K/mcL (0.0-1.3); Monocytes % 7.2 %; Neutrophils # 5.9 K/mcL (1.6-8.9); Nucleated Red Blood Cells 0.2 /100 WBC (0); Platelet Count 301 K/mcL (140-400); Red Blood Count 2.98 M/mcL (4.19-5.50); Red Cell Distribution Width 18.3 % (11.5-14.5); Segmented Neutrophils % 66.4 %
[2018-09-27 04:11] LABS: BUN/Creatinine Ratio 16 (6-26); Blood Urea Nitrogen 12 mg/dL (8-23); Calcium 8.4 mg/dL (8.6-10.3); Carbon Dioxide 24 mEq/L (23-29); Chloride 111 mEq/L (98-107); Glucose 92 mg/dL (70-105); Magnesium 2.2 mg/dL (1.6-2.6); Osmolality,Calculated 293 (280-300); Potassium 3.6 mEq/L (3.5-5.1); Sodium 142 mEq/L (136-145); eGFR For Non-African Americans > 60 (> 60)
[2018-09-27 04:26] LABS: Thyroid Stimulating Hormone 1.843 mcIU/mL (0.340-5.600)
[2018-09-27 04:38] LABS: Folate > 22.3 ng/mL (3.0-16.0); Vitamin B12 1384 pg/mL (250-1100)
[2018-09-27] MEDS: Pantoprazole 40 MG VIAL IVP SCH ×2 (05:08→17:30)
--- NOTE | 2018-09-27 07:35 | Event Note ---
Date of Encounter: 09/27/18 Time of Encounter: 07:33 Patient was seen and examined. I agree with the progress note as written by the resident physician. Mental status is better. Remains afebrile Admitted by one of my colleagues for weakness and altered mental status. Ex said last week he had a fever [facility] to 103 [facility]. Not sure what was done about that. He has had no fever here. CT head unremarkable. CXR negative for pneumonia. Has a chronic cough. He was noted to have a hemoglobin of less than 7 on admission. He was transfused 2 units. I put him on IV PPI and stopped his aspirin and heparin subcutaneous. He did have positive FOBT. EGD and colonoscopy unremarkable last November 2017. Cardiology evaluated for severe . Also had elevated troponins of 0.04 which has trended down. GEN: NAD CVS: RRR. S1, S2, systolic murmur heard throughout RESP: CTAB ABD: Soft, NT, ND, +BS EXT: No edema. 2+ DP. No rashes NEURO: Nonfocal. A/O x2 Monitor H/H NPO To be seen by GI On IV PPI On iron supplements Continue to hold sedatives Mental status better but still not at baseline. May have to see if his mental status improves later in the day vs. the morning. Cardiology will be contacted regarding AVR/ischemic work up once GI cleared him. Resume home meds
--- NOTE | 2018-09-27 07:59 | Internal Med Progress Note ---
<Odilon Gan M - Last Filed: 09/27/18 10:29> Hospitalist Progress Note - Encounter Date of Encounter: 09/27/18 - Exam Vitals: Temp Pulse Resp BP Pulse Ox 98.5 F 87 12 136/58 96 09/27/18 07:41 09/27/18 07:41 09/27/18 07:41 09/27/18 07:41 09/27/18 07:41 - Assessment and Plan (1) Severe aortic stenosis Current Visit: Yes Status: Chronic (2) Pressure injury of right ischium, stage 3 Current Visit: Yes Status: Chronic (3) Acute encephalopathy Current Visit: Yes Status: Acute (4) Dehydration Current Visit: Yes Status: Acute (5) DVT prophylaxis Current Visit: Yes Status: Acute (6) Acute blood loss anemia Current Visit: No Status: Acute (7) Metabolic encephalopathy Current Visit: Yes Status: Acute - Time Spent with Patient Total time spent is greater than 50% in coordination of care (as documented) at patient's floor/unit and/or counseling patient: Internal Medicine: Result - Labs CBC & Chem 7: 09/27/18 03:23 09/27/18 03:23 Labs: Short CBC 09/27/18 Range/Units 03:23 WBC 8.9 (4.3-11.1) K/mcL Hgb 8.0 L (12.9-16.9) g/dL Hct 26.9 L (37.5-50.1) % Plt Count 301 (140-400) K/mcL Neutrophils # 5.9 (1.6-8.9) K/mcL BMP 09/27/18 03:23 Sodium 142 Potassium 3.6 Chloride 111 H Carbon Dioxide 24 BUN 12 Creatinine 0.76 Glucose 92 Calcium 8.4 L Consult Discharge Plan - Plan Referrals: Osbaldo Forman MD [Primary Care Provider] - <Em Lux N - Last Filed: 09/27/18 16:37> Hospitalist Progress Note - Encounter Date of Encounter: 09/27/18 Time of Encounter: 07:59 - Subjective Interval History: Mr. Hollingsworth is a 73-year old male who was admitted to [facility] for evaluation of altered mental status and acute kidney injury. He was also found to have acute anemia, for which he was transfused 1 unit PRBC. On evaluation today, patient is extremely somnolent and difficult to wake. He denies any pain, but is unable to provide much information other than that due to falling asleep. Nursing staff reports no acute overnight events. - Exam Vitals: Temp Pulse Resp BP Pulse Ox 98.5 F 87 12 136/58 96 09/27/18 07:41 09/27/18 07:41 09/27/18 07:41 09/27/18 07:41 09/27/18 07:41 Exam: GENERAL: Adult male sleeping in bed in no acute distress. He wakes to tactile stimulation, but falls asleep quickly when trying to answer questions. HEENT: Atraumatic and normocephalic. CARDIOVASCULAR: Regular rate and rhythm. S1 and S2 present. No murmurs, gallops, or rubs. RESPIRATORY: Clear to auscultation bilaterally. Chest rises and falls symmetrically without accessory muscle use. GASTROINTESTINAL: Abdomen is soft, nontender, nondistended. Bowel sounds present x4 quadrants. EXTREMITIES: No clubbing, cyanosis, or edema. SKIN: Warm, dry, and intact. NEUROLOGIC: Patient is unable to identify the day of the week or what month it is. He is hypersomnolent and unable to cooperate with exam. - Assessment and Plan (1) Acute blood loss anemia Current Visit: No Status: Acute Assessment and Plan: Suspect secondary to GI bleed. Hemoglobin on initial presentation of 6.9, at which time patient was noted to have a positive hemoccult. Patient received 1 unit PRBC, with appropriate improvement in hemoglobin. Morning laboratory studies demonstrate stable hemoglobin of 8.0. GI consult today recommended EGD and colonoscopy tomorrow. - Continue to monitor and trend hemoglobin and hematocrit, with repeat transfusion if indicated. - Bowel preparation for endoscopy tomorrow per GI recommendations. - Continue IV protonix 40mg BID. (2) Acute encephalopathy Current Visit: Yes Status: Acute Assessment and Plan: Unclear etiology. Initial workup at outside ED included CT head, CXR, and urinalysis, which were all unremarkable. On evaluation this morning, patient is extremely somnolent and difficult to wake. He is unable to answer what day or month it is, and quickly falls asleep after being asked a question. Nursing staff reports that they were unable to wake the patient for his morning medications, and patient's medications that could be contributing to this have been held. Serum ammonia found to be WNL. Family members at the bedside state that he is very somnolent "all the time", but are unable to speculate how long this has been occurring. Stat ABG was ordered, as patient was becoming increasingly difficult to wake; however, prior to this being done, nursing staff reported that the patient was wake and conversant. Plan: - Continue to hold medications that may increase patient's somnolence, including pregabalin and oxycodone. - If patient becomes unarousable again, consider stat ABG. - Consider neurology consult if patient continues to be altered. (3) Severe aortic stenosis Current Visit: Yes Status: Chronic Assessment and Plan: Severe aortic stenosis demonstrated on prior echocardiogram. Cardiology did evaluate patient, and recommended consideration of AVR once current issues resolve. - Consider repeat cardiology consultation after completion of GI workup and stabilization of acute anemia. 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 (5) DVT prophylaxis Current Visit: Yes Status: Acute Assessment and Plan: - Pharmacologic prophylaxis held secondary to acute anemia and suspected GI bleed; continue with SCDs. - Time Spent with Patient Total time spent is greater than 50% in coordination of care (as documented) at patient's floor/unit and/or counseling patient: Internal Medicine: Result - Labs CBC & Chem 7: 09/27/18 03:23 09/27/18 03:23 Labs: Short CBC 09/27/18 Range/Units 03:23 WBC 8.9 (4.3-11.1) K/mcL Hgb 8.0 L (12.9-16.9) g/dL Hct 26.9 L (37.5-50.1) % Plt Count 301 (140-400) K/mcL Neutrophils # 5.9 (1.6-8.9) K/mcL BMP 09/27/18 03:23 Sodium 142 Potassium 3.6 Chloride 111 H Carbon Dioxide 24 BUN 12 Creatinine 0.76 Glucose 92 Calcium 8.4 L
[2018-09-27] MEDS: Pregabalin 75 MG CAPSULE PO SCH ×2 (09:00→10:27)
[2018-09-27] MEDS: Furosemide 40 MG TABLET PO SCH ×3 (10:15→15:28)
[2018-09-27] MEDS: Vitamin B Complex/Vit C/Vit E 1 EACH TABLET PO SCH ×3 (10:15→15:28)
[2018-09-27] MEDS: Desitin (Zinc Oxide) 56 GM TUBE TP SCH (10:17)
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
[2018-09-27 16:46] LABS: ABG Base Excess 1 mEq/L (-2 to 3); ABG HCO3 26 mEq/L (21-27); ABG Oxygen Saturation 97 % (95-98); ABG PCO2 41 mmHg (35-45); ABG PH 7.41 pH Units (7.32-7.45); ABG PO2 92 mmHg (85-104); ABG TCO2 27 mEq/L (20-26)
[2018-09-27] MEDS ORDERED: SODIUM CHLORIDE/NAHCO3/KCL/PEG 4,000 ML SOLN.RECON PO ONE (17:00)
[2018-09-28] MEDS: Pantoprazole 40 MG VIAL IVP SCH ×2 (05:16→18:01)
[2018-09-28 05:27] LABS: Basophils % 0.4 %; Eosinophils # 0.3 K/mcL (0.0-0.6); Hematocrit 27.2 % (37.5-50.1); Hemoglobin 8.1 g/dL (12.9-16.9); Immature Granulocytes % 2.4 % (0-4); Lymphocytes # 1.9 K/mcL (0.6-4.6); Lymphocytes % 17.8 %; Mean Corpuscular HGB Conc 29.8 g/dL (31.6-35.5); Mean Corpuscular Hemoglobin 26.6 pg (28.0-33.3); Mean Corpuscular Volume 89.5 fL (83.0-100.0); Mean Platelet Volume 9.5 fL (9.4-12.4); Monocytes # 0.9 K/mcL (0.0-1.3); Monocytes % 8.4 %; Neutrophils # 7.3 K/mcL (1.6-8.9); Nucleated Red Blood Cells 0.2 /100 WBC (0); Platelet Count 293 K/mcL (140-400); Red Blood Count 3.04 M/mcL (4.19-5.50); Red Cell Distribution Width 18.2 % (11.5-14.5)
[2018-09-28 05:28] LABS: VBG Ionized Calcium 1.18 mmol/L (1.15-1.35)
[2018-09-28 05:49] LABS: BUN/Creatinine Ratio 11 (6-26); Blood Urea Nitrogen 9 mg/dL (8-23); Calcium 8.3 mg/dL (8.6-10.3); Carbon Dioxide 26 mEq/L (23-29); Chloride 106 mEq/L (98-107); Glucose 110 mg/dL (70-105); Osmolality,Calculated 289 (280-300); Potassium 3.3 mEq/L (3.5-5.1); Sodium 140 mEq/L (136-145); eGFR For Non-African Americans > 60 (> 60)
--- NOTE | 2018-09-28 08:08 | Event Note ---
Date of Encounter: 09/28/18 Time of Encounter: 08:05 Patient was seen and examined. I agree with the progress note as written by the resident physician. No acute events. Remains afebrile. EGD/Colonoscopy planned today. Admitted by one of my colleagues for weakness and altered mental status. Ex said last week he [facility] a [facility] Not sure what was done about that. He has had no fever here. CT head unremarkable. CXR negative for pneumonia. Has a chronic cough. He was noted to have a hemoglobin of less than 7 on admission. He was transfused 2 units. I put him on IV PPI and stopped his aspirin and heparin subcutaneous. He did have positive FOBT. EGD and colonoscopy unremarkable last November 2017. Cardiology evaluated for severe . Also had elevated troponins of 0.04 which has trended down. GEN: NAD CVS: RRR. S1, S2, systolic murmur heard throughout RESP: CTAB ABD: Soft, NT, ND, +BS EXT: No edema. 2+ DP. No rashes NEURO: Nonfocal. A/O x2 Monitor H/H EGD/colonsocopy today On IV PPI On iron supplements Continue to hold sedatives. Seems to be more confused when he wakes up but gets better with time. He was much more alert yesterday evening according to his nurse. Will continue to monitor. Cardiology will be contacted regarding AVR/ischemic work up once GI cleared him. Resume home meds
[2018-09-28] MEDS: Vitamin B Complex/Vit C/Vit E 1 EACH TABLET PO SCH (08:27)
[2018-09-28] MEDS: Furosemide 40 MG TABLET PO SCH (08:27)
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
[2018-09-28] MEDS ORDERED: Lidocaine -MPF 2% 2 ML VIAL ONE (11:53)
[2018-09-28] MEDS ORDERED: *HR* Midazolam HCl 2 MG/2 ML VIAL ONE (11:54)
[2018-09-28] MEDS ORDERED: *HR* FentaNYL (PF) 100 MCG/2 ML VIAL ONE ×2 (11:54→13:21)
[2018-09-28] MEDS ORDERED: *HR* Propofol 200 MG/20 ML VIAL IVP ONE ×2 (11:54→13:23)
[2018-09-28] MEDS ORDERED: *HR* PHENYLEPHRINE 1,000 MCG/10 ML SYRINGE IVP ONE ×2 (11:59→12:00)
[2018-09-28] MEDS ORDERED: Simethicone 40 MG/0.6 ML MLS IR ONE ×2 (13:52→13:54)
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
[2018-09-28] MEDS: 0.9 % Sodium Chloride 500 ML IVC SCH (15:57)
[2018-09-28] MEDS: Desitin (Zinc Oxide) 56 GM TUBE TP SCH (15:57)
[2018-09-29] MEDS: 0.9 % Sodium Chloride 500 ML IVC SCH (01:04)
[2018-09-29] MEDS: Pantoprazole 40 MG VIAL IVP SCH (05:15)
[2018-09-29 05:19] LABS: Basophils % 0.4 %; Eosinophils # 0.2 K/mcL (0.0-0.6); Eosinophils % 2.2 %; Hematocrit 29.5 % (37.5-50.1); Hemoglobin 8.7 g/dL (12.9-16.9); Immature Granulocytes % 1.8 % (0-4); Lymphocytes # 1.4 K/mcL (0.6-4.6); Mean Corpuscular HGB Conc 29.5 g/dL (31.6-35.5); Mean Corpuscular Hemoglobin 26.1 pg (28.0-33.3); Mean Corpuscular Volume 88.6 fL (83.0-100.0); Mean Platelet Volume 9.5 fL (9.4-12.4); Monocytes # 0.8 K/mcL (0.0-1.3); Neutrophils # 7.5 K/mcL (1.6-8.9); Platelet Count 327 K/mcL (140-400); Red Blood Count 3.33 M/mcL (4.19-5.50); Segmented Neutrophils % 73.6 %
[2018-09-29 05:32] LABS: VBG Ionized Calcium 1.13 mmol/L (1.15-1.35)
[2018-09-29 05:38] LABS: BUN/Creatinine Ratio 12 (6-26); Blood Urea Nitrogen 9 mg/dL (8-23); Calcium 8.5 mg/dL (8.6-10.3); Carbon Dioxide 24 mEq/L (23-29); Chloride 104 mEq/L (98-107); Glucose 113 mg/dL (70-105); Magnesium 1.9 mg/dL (1.6-2.6); Osmolality,Calculated 287 (280-300); Phosphorous 2.8 mg/dL (2.7-4.5); Potassium 3.3 mEq/L (3.5-5.1); Sodium 139 mEq/L (136-145); eGFR For Non-African Americans > 60 (> 60)
--- NOTE | 2018-09-29 07:57 | Internal Med Progress Note ---
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 (5) DVT prophylaxis Current Visit: Yes Status: Acute - Time Spent with Patient Total time spent is greater than 50% in coordination of care (as documented) at patient's floor/unit and/or counseling patient: Internal Medicine: Result - Labs CBC & Chem 7: 09/29/18 05:04 09/29/18 05:04 Labs: Short CBC 09/29/18 Range/Units 05:04 WBC 10.2 (4.3-11.1) K/mcL Hgb 8.7 L (12.9-16.9) g/dL Hct 29.5 L (37.5-50.1) % Plt Count 327 (140-400) K/mcL Neutrophils # 7.5 (1.6-8.9) K/mcL BMP 09/29/18 05:04 Sodium 139 Potassium 3.3 L Chloride 104 Carbon Dioxide 24 BUN 9 Creatinine 0.77 Glucose 113 H Calcium 8.5 L - ABG Interpretation ABG results: ABG ABG pH 7.41 pH Units (7.32-7.45) 09/27/18 16:41 ABG pCO2 41 mmHg (35-45) 09/27/18 16:41 ABG pO2 92 mmHg (85-104) 09/27/18 16:41 ABG O2 Saturation 97 % (95-98) 09/27/18 16:41 Consult Discharge Plan - Plan Referrals: Osbaldo Forman MD [Primary Care Provider] -
[2018-09-29] MEDS: Vitamin B Complex/Vit C/Vit E 1 EACH TABLET PO SCH (09:32)
[2018-09-29] MEDS: Furosemide 40 MG TABLET PO SCH (09:32)
[2018-09-29] MEDS: Desitin (Zinc Oxide) 56 GM TUBE TP SCH (09:32)
[2018-09-29 11:04] VITALS: BP 178/69
--- NOTE | 2018-09-29 11:04 | Discharge Summary ---
<Alexandre Carlin - Last Filed: 09/29/18 15:03> Date of Encounter: 09/29/18 - Discharge Diagnosis (1) Acute blood loss anemia Priority: Secondary Status: Acute (2) Severe aortic stenosis Priority: Secondary Status: Chronic (3) Pressure injury of right ischium, stage 3 Priority: Secondary Status: Chronic (4) Acute encephalopathy Status: Acute (5) Metabolic encephalopathy Priority: Primary Status: Acute (6) Sedated due to medication Priority: Secondary Status: Acute (7) Tobacco use Priority: Secondary Status: Chronic Hospital course: Mr. Hollingsworth is a 73 year old male - Time Spent with Patient Total time spent providing and/or coordinating discharge services: 34min - Discharge Medications Prescriptions: Continue Docusate [Colace] 100 mg PO BID capsule Duloxetine HCl [Cymbalta] 60 mg PO DAILY Aspirin 81 mg PO DAILY Protein Supplement [Promod] 30 ml PO DAILY Zinc Oxide/Petrolatum,White [Remedy Phytoplex Z-Guard Paste] 113 gm TP DAILY Potassium Chloride [K-Tab ER] 10 meq PO DAILY Multivitamin,Stress Formula/Zn [Stress B with Zinc Tablet] 1 each PO DAILY Acetaminophen [Tylenol 8 Hour] 1,300 mg PO BID Furosemide [Lasix] 40 mg PO DAILY Ferrous Sulfate [Iron] 325 mg PO BID Ipratropium/Albuterol Neb [Duoneb] 3 ml IH Q4HR PRN PRN Reason: Congestion Menthol [Biofreeze] 118 ml TP BID Discontinued OxyCODONE/APAP 5/325 [Percocet 5/325 MG] 1 each PO Q4HR PRN 4 Days #12 tablet PRN Reason: Moderate Pain 4-6 Pregabalin [Lyrica] 300 mg PO BID Home Medications: Docusate [Colace] 100 mg PO BID capsule 11/13/17 [Rx] Aspirin 81 mg PO DAILY 11/23/17 [History] Protein Supplement [Promod] 30 ml PO DAILY 11/23/17 [History] Duloxetine HCl [Cymbalta] 60 mg PO DAILY 11/24/17 [History] Acetaminophen [Tylenol 8 Hour] 1,300 mg PO BID 09/24/18 [History] Ferrous Sulfate [Iron] 325 mg PO BID 09/24/18 [History] Furosemide [Lasix] 40 mg PO DAILY 09/24/18 [History] Ipratropium/Albuterol Neb [Duoneb] 3 ml IH Q4HR PRN 09/24/18 [History] Menthol [Biofreeze] 118 ml TP BID 09/24/18 [History] Multivitamin,Stress Formula/Zn [Stress B with Zinc Tablet] 1 each PO DAILY 09/24/18 [History] Potassium Chloride [K-Tab ER] 10 meq PO DAILY 09/24/18 [History] Zinc Oxide/Petrolatum,White [Remedy Phytoplex Z-Guard Paste] 113 gm TP DAILY 09/24/18 [History] Allergies/Adverse Reactions: Allergy/AdvReac Type Severity Reaction Status Date / Time No Known Allergies Allergy Verified 11/23/17 21:01 Date of admission: 09/26/18 11:04 Primary care physician: Osbaldo Forman MD Consults: 09/24/18 23:23 Consult to Wound Care [CONS] Routine Reason for Consult: decubitus ulcers Call Completed: No 09/24/18 23:26 Consult to Physician [CONS] Routine Consulting Provider: Raza Reynolds Reason for Consult: troponin elevation Call Completed: No 09/25/18 07:32 Consult to Occupational Therapy [CONS] Routine Comment: Evaluate, develop and implement POC Reason for Consult: therapy/placement needs Does patient have active BEDREST order?: No Is patient medically & hemodynamically stable?: Yes Consult to Physical Therapy [CONS] Routine Comment: Evaluate, develop and implement POC Reason for Consult: PT eval Does patient have active BEDREST order?: No Is patient medically & hemodynamically stable?: Yes 09/25/18 15:46 Consult to Gastroenterology [CONS] Routine Consulting Provider: Bruce Buckley Reason for Consult: Hemoglobin 6.9, positive occult stool Call Completed: No 09/27/18 08:03 Consult to Sports Manager [CONS] Routine Reason for SW Consult: PATIENT FROM [facility] IN [place] - Constitutional Vitals: Temp Pulse Resp BP Pulse Ox 97.5 F L 78 18 178/69 96 09/29/18 11:00 09/29/18 11:00 09/29/18 11:00 09/29/18 11:00 09/29/18 11:00 - Patient Status Disposition: Transfer SNF Condition: Fair - Ambulatory Orders Ambulatory Orders: Complete Blood Count [HEME] Time Frame: 1 Week, Location: Determined By Patient - Discharge Instructions Follow Up With: Osbaldo Forman MD [Primary Care Provider] - Additional Instructions: Follow up with your PCP in 3-5 days for reevaluation. Follow up with cardiology as scheduled. Have repeat CBC in one week to evaluate for recurrent anemia. Stop taking percocet and lyrica, but continue your other home medications. Return to the emergency department if you have signs of bleeding, dark stools, fevers, chills, or mental status changes. - Attending Attestation I examined this patient and my medical decision-making was reviewed with the Resident Physician on 09/29/18. I agree with the documented findings, disposition and treatment plan as described except to the extent set forth below. Mr Hollingsworth has been admitted for acute metabolic encephalopathy. He has improved with holding medications. He was noted to be anemic and had endoscopy which was negative for acute bleed. He was also noted to have severe aortic stenosis on echo and will need further followup and treatment. At this time he is more alert and afebrile. He is ready to return to ECF. Lyrica and pain medication to be held at discharge. Exam alert Comfortable Mucus membranes dry Heart reg with murmur Lungs diminished Abd soft Moves all extremities. Plan D/C to ECF today. Hold Lyrica and pain meds Follow up with cardiology regarding aortic stenosis and further options for treatment. <Anna Luxey N - Last Filed: 09/29/18 18:35> - NOTES TO OUTPATIENT PROVIDER Notes to Outpatient Provider: Patient was admitted to the hospital for altered mental status. He was found to have severe anemia, which required blood transfusion. EGD and colonoscopy did not reveal any bleeding sources. Patient was noted to have severe aortic stenosis, with recommendation for possible aortic valve replacement; patient will need outpatient follow up with cardiology. Patient will need repeat CBC in 1 week to evaluate for recurrent anemia. Date of Encounter: 09/29/18 Time of Encounter: 11:04 - Discharge Diagnosis (1) Acute encephalopathy Priority: Primary Status: Acute (2) Acute blood loss anemia Priority: Secondary Status: Acute (3) Severe aortic stenosis Priority: Secondary Status: Chronic (4) Pressure injury of right ischium, stage 3 Priority: Secondary Status: Chronic Hospital course: Mr. Hollingsworth is a 73 year old male who initially presented to the emergency department due to concerns for altered mental status. He was initially evaluated at an outside facility, where he was noted to have an elevated troponin and acute kidney injury, which prompted transfer to [facility] [place]. Patient had workup for acute encephalopathy prior to transfer, which included head CT, chest x-ray, and urinalysis; these studies were unremarkable for causes of his acute mental status changes. Laboratory studies demonstrated acute anemia with a hemoglobin of 6.9; patient did receive transfusion of 1 unit PRBC. Stool Hemoccult was noted to be positive. Patient was evaluated by cardiology, who recommended consideration of aortic valve replacement due to severe aortic stenosis as demonstrated on previous echocardiogram performed in November 2017. Per their consult note, patient's troponin elevation was felt to be secondary to demand ischemia from severe anemia. Due to concerns for GI bleed, patient underwent EGD and colonoscopy. EGD demonstrated LA grade a esophagitis with no bleeding, diffuse mild inflammation in the entire examined stomach, and patchy mildly erythematous mucosa without active bleeding or stigmata of bleeding in the duodenal bulb. Colonoscopy demonstrated for sessile, nonbleeding polyps in the sigmoid colon, as well as nonbleeding internal hemorrhoids. Patient did not have any biopsies taken due to being on aspirin therapy. During his hospitalization, patient's home medications of Percocet and Lyrica were held during this admission, and patient did have improvement in the status. Patient denied any pain or discomfort secondary to having these medications held. On day of discharge, patient had returned to baseline mental status, and was alert and oriented 3. He denied any complaints or concerns, and stated that he was ready for discharge to his nursing facility. Patient will require repeat CBC in 1 week to evaluate for recurrent anemia. - Time Spent with Patient Total time spent providing and/or coordinating discharge services: Date of admission: 09/26/18 11:04 Primary care physician: Osbaldo Forman MD Consults: 09/24/18 23:23 Consult to Wound Care [CONS] Routine Reason for Consult: decubitus ulcers Call Completed: No 09/24/18 23:26 Consult to Physician [CONS] Routine Consulting Provider: Raza Reynolds Reason for Consult: troponin elevation Call Completed: No 09/25/18 07:32 Consult to Occupational Therapy [CONS] Routine Comment: Evaluate, develop and implement POC Reason for Consult: therapy/placement needs Does patient have active BEDREST order?: No Is patient medically & hemodynamically stable?: Yes Consult to Physical Therapy [CONS] Routine Comment: Evaluate, develop and implement POC Reason for Consult: PT eval Does patient have active BEDREST order?: No Is patient medically & hemodynamically stable?: Yes 09/25/18 15:46 Consult to Gastroenterology [CONS] Routine Consulting Provider: Bruce Buckley Reason for Consult: Hemoglobin 6.9, positive occult stool Call Completed: No 09/27/18 08:03 Consult to Sports Manager [CONS] Routine Reason for SW Consult: PATIENT FROM [facility] [place] Discharging clinician: Em Lux Anticipated date of discharge: 09/29/18 - Constitutional Vitals: Temp Pulse Resp BP Pulse Ox 97.5 F L 78 18 178/69 96 09/29/18 11:00 09/29/18 11:00 09/29/18 11:00 09/29/18 11:00 09/29/18 11:00 General appearance: Present: A&O X 1 Exam: GENERAL: Well-developed, well-nourished adult male in no acute distress. HEENT: Atraumatic and normocephalic. CARDIOVASCULAR: Regular rate and rhythm. S1 and S2 present. 3/6 systolic murmur present. RESPIRATORY: Clear to auscultation bilaterally. Chest rises and falls symmetrically without accessory muscle use. GASTROINTESTINAL: Abdomen is soft, nontender, nondistended. EXTREMITIES: No clubbing, cyanosis, or edema. Right lower extremity is surgically absent proximal to the knee. SKIN: Warm, dry, and intact. NEUROLOGIC: Alert and oriented x3. Patient is cooperative with exam and answers questions appropriately. No apparent focal deficits. PSYCHIATRIC: Appropriate mood and affect. - Patient Status Overall status at discharge: patient is progressing back to baseline - Diet and Activity Activity: increase activity as tolerated, resume usual activities as tolerated Diet: diabetic diet
--- NOTE | 2018-09-29 13:15 | Physician Discharge Referral ---
ExtendedCare Referral Info Transfer To: [facility] Provider in Charge: Dr. Alexandre Carlin Provider in Charge after Transfer: PCP Institutional Level of Care: Skilled - Diagnosis (1) Acute encephalopathy Priority: Primary Status: Acute (2) Acute blood loss anemia Priority: Secondary Status: Acute (3) Severe aortic stenosis Priority: Secondary Status: Chronic (4) Pressure injury of right ischium, stage 3 Priority: Secondary Status: Chronic - Transfer Medications Home Medications: Docusate [Colace] 100 mg PO BID capsule 11/13/17 [Rx] Aspirin 81 mg PO DAILY 11/23/17 [History] Protein Supplement [Promod] 30 ml PO DAILY 11/23/17 [History] Duloxetine HCl [Cymbalta] 60 mg PO DAILY 11/24/17 [History] Acetaminophen [Tylenol 8 Hour] 1,300 mg PO BID 09/24/18 [History] Ferrous Sulfate [Iron] 325 mg PO BID 09/24/18 [History] Furosemide [Lasix] 40 mg PO DAILY 09/24/18 [History] Ipratropium/Albuterol Neb [Duoneb] 3 ml IH Q4HR PRN 09/24/18 [History] Menthol [Biofreeze] 118 ml TP BID 09/24/18 [History] Multivitamin,Stress Formula/Zn [Stress B with Zinc Tablet] 1 each PO DAILY 09/24/18 [History] Potassium Chloride [K-Tab ER] 10 meq PO DAILY 09/24/18 [History] Zinc Oxide/Petrolatum,White [Remedy Phytoplex Z-Guard Paste] 113 gm TP DAILY 09/24/18 [History] Allergies/Adverse Reactions: Allergy/AdvReac Type Severity Reaction Status Date / Time No Known Allergies Allergy Verified 11/23/17 21:01 - Respiratory Orders Smoking Cessation: Smoking cessation has been advised. For more information, call the [place] Tobacco Quit Line at 4-053-SDRB-NOW. - Lab Orders Lab Orders: CBC - Ancillary Orders May use pressure relief devices daily prn - Rehabiliation Orders Rehab Orders: ROM Exercises, Evaluation for Physical Therapy, Evaluation for Occupational Therapy, Evaluation for Speech Therapy - Treatments Skin tear care topically daily PRN per policy - Diet Orders No Added Salt (KAYODE), Cardiac CERTIFICATION: I certify that the transfer of the above named patient to an Extended Care Facility is necessary for the continuing treatment of the diagnosis listed. The above information is true and accurate reflection of patient's current condition. Confidential - Redisclosure prohibited without a patient's written consent.
== END 2018-09-29 15:27 | DRG 70 ==
LOC: 3BNU → SUATTDRO 09-26 11:04
PROVIDERS: ADMIT Internal Medicine Nephrology; ATTEND Internal Medicine

== ENCOUNTER 2019-04-11 01:13 | Inpatient (IN) ==
[2019-04-11] MEDS ORDERED: Naloxone 0.4 MG/ML INJ IVP PRN (06:05)
[2019-04-11] MEDS ORDERED: Nicotine 21 MG PATCH.TD24 TD PRN (06:29)
[2019-04-11] MEDS ORDERED: D5% in Water 1,000 ML IVC PRN (07:50)
[2019-04-11] MEDS ORDERED: *HR* Dextrose 50 % in Water (Syg) 50 ML SYRINGE IVP PRN (07:50)
[2019-04-11] MEDS ORDERED: Dextrose Gel 15 GM/37.5 ML TUBE PO PRN ×2 (07:50)
[2019-04-11] MEDS ORDERED: Sennosides/Docusate Sodium TABLET PO PRN (07:52)
[2019-04-11] MEDS ORDERED: Ipratropium/Albuterol Neb 3 ML IH PRN (07:52)
[2019-04-11 07:59] LABS: Hematocrit 18.7 % (37.5-50.1); Mean Corpuscular HGB Conc 29.9 g/dL (31.6-35.5); Mean Corpuscular Hemoglobin 28.1 pg (28.0-33.3); Mean Platelet Volume 8.9 fL (9.4-12.4); Platelet Count 439 K/mcL (140-400); Red Blood Count 1.99 M/mcL (4.19-5.50); Red Cell Distribution Width 17.7 % (11.5-14.5); White Blood Count 17.3 K/mcL (4.3-11.1)
[2019-04-11] MEDS ORDERED: D5% in 0.9% NACL 1,000 ML IVC SCH (08:00)
[2019-04-11 08:06] LABS: Prothrombin Time 11.8 Seconds (9.4-12.1)
[2019-04-11 08:11] LABS: Hemoglobin 5.6 g/dL (12.9-16.9)
[2019-04-11 08:15] LABS: Alanine Aminotransferase 19 Units/L (7-52); Albumin 2.9 g/dL (3.5-5.7); Alkaline Phosphatase 98 Units/L (34-104); Aspartate Amino Transferase 27 Units/L (13-39); BUN/Creatinine Ratio 28 (6-26); Bilirubin,Total 0.6 mg/dL (0.3-1.0); Blood Urea Nitrogen 27 mg/dL (8-23); Calcium 8.4 mg/dL (8.6-10.3); Carbon Dioxide 25 mEq/L (23-29); Chloride 103 mEq/L (98-107); Glucose 138 mg/dL (70-105); Osmolality,Calculated 287 (280-300); Potassium 3.6 mEq/L (3.5-5.1); Sodium 135 mEq/L (136-145); Total Protein 5.9 g/dL (6.4-8.9); eGFR For African Americans > 60 (> 60); eGFR For Non-African Americans > 60 (> 60)
[2019-04-11 08:22] LABS: Phosphorous 4.3 mg/dL (2.7-4.5)
[2019-04-11] MEDS ORDERED: Isovue-370 500 ML BOTTLE IVP ONE (08:36)
[2019-04-11] MEDS ORDERED: 0.9 % Sodium Chloride 250 ML IVC SCH ×2 (08:45)
[2019-04-11] MEDS: Aspirin Enteric Coated 81 MG Tablet PO SCH (09:28)
[2019-04-11] MEDS: Insulin LISPRO 300 UNITS/3 ML VIAL SQ SCH ×3 (13:55→21:21)
[2019-04-11] MEDS: Azithromycin 500 MG in 0.9 % Sodium Chloride 250 ML IVPB SCH (15:32)
[2019-04-11] MEDS: cefTRIAXone 1,000 MG in Water for inj. (sterile) 10 ML IVP SCH (15:32)
[2019-04-11] MEDS: Melatonin 3 MG TABLET PO SCH (21:24)
[2019-04-11 22:20] LABS: Bilirubin,Urine Negative (Negative); Blood,Urine Negative (Negative); Clarity,Urine Clear (Clear); Color,Urine Yellow (Yellow); Glucose,Urine (UA) Normal (Normal); Ketones,Urine Negative (Negative); Leukocyte Esterase,Urine Negative (Negative); Nitrite,Urine Negative (Negative); PH,Urine 5.5 pH Units (5.0-8.0); Protein,Urine Negative (Neg-Trace); Specific Gravity,Urine > 1.030 (1.010-1.025); Urobilinogen,Urine Normal (Normal)
[2019-04-12 04:17] LABS: Basophils % 0.2 %; Eosinophils # 0.2 K/mcL (0.0-0.6); Eosinophils % 0.9 %; Immature Granulocytes % 1.3 % (0-4); Lymphocytes # 1.2 K/mcL (0.6-4.6); Lymphocytes % 6.9 %; Mean Corpuscular HGB Conc 32.1 g/dL (31.6-35.5); Mean Corpuscular Volume 93.4 fL (83.0-100.0); Monocytes # 0.9 K/mcL (0.0-1.3); Monocytes % 5.1 %; Neutrophils # 14.5 K/mcL (1.6-8.9); Nucleated Red Blood Cells 0.3 /100 WBC (0); Platelet Count 385 K/mcL (140-400); Red Blood Count 2.57 M/mcL (4.19-5.50); Red Cell Distribution Width 17.1 % (11.5-14.5); Segmented Neutrophils % 85.6 %
[2019-04-12 04:18] LABS: Hemoglobin 7.7 g/dL (12.9-16.9)
[2019-04-12 04:36] LABS: BUN/Creatinine Ratio 20 (6-26); Blood Urea Nitrogen 17 mg/dL (8-23); C-Reactive Protein 131 mg/L (Less than 10); Calcium 8.1 mg/dL (8.6-10.3); Carbon Dioxide 22 mEq/L (23-29); Chloride 105 mEq/L (98-107); Glucose 115 mg/dL (70-105); Osmolality,Calculated 276 (280-300); Phosphorous 3.2 mg/dL (2.7-4.5); Potassium 3.7 mEq/L (3.5-5.1); Sodium 132 mEq/L (136-145); eGFR For African Americans > 60 (> 60); eGFR For Non-African Americans > 60 (> 60)
[2019-04-12 04:37] LABS: % Iron Saturation 9 % (20-55); Iron 28 mcg/dL (65-175); Transferrin 227 mg/dL (203-362)
[2019-04-12] MEDS: Aspirin Enteric Coated 81 MG Tablet PO SCH (07:51)
[2019-04-12] MEDS: Insulin LISPRO 300 UNITS/3 ML VIAL SQ SCH ×4 (07:51→20:52)
[2019-04-12] MEDS: cefTRIAXone 1,000 MG in Water for inj. (sterile) 10 ML IVP SCH (07:51)
[2019-04-12] MEDS: Azithromycin 500 MG in 0.9 % Sodium Chloride 250 ML IVPB SCH (15:31)
[2019-04-12] MEDS: Melatonin 3 MG TABLET PO SCH (19:46)
[2019-04-13 02:46] LABS: Hematocrit 24.4 % (37.5-50.1); Hemoglobin 7.6 g/dL (12.9-16.9); Mean Corpuscular HGB Conc 31.1 g/dL (31.6-35.5); Mean Corpuscular Hemoglobin 29.6 pg (28.0-33.3); Mean Corpuscular Volume 94.9 fL (83.0-100.0); Mean Platelet Volume 9.2 fL (9.4-12.4); Platelet Count 391 K/mcL (140-400); Red Blood Count 2.57 M/mcL (4.19-5.50); Red Cell Distribution Width 17.7 % (11.5-14.5); White Blood Count 16.3 K/mcL (4.3-11.1)
[2019-04-13 02:59] LABS: BUN/Creatinine Ratio 20 (6-26); Blood Urea Nitrogen 16 mg/dL (8-23); Carbon Dioxide 22 mEq/L (23-29); Chloride 107 mEq/L (98-107); Glucose 127 mg/dL (70-105); Osmolality,Calculated 283 (280-300); Potassium 3.5 mEq/L (3.5-5.1); Sodium 135 mEq/L (136-145); eGFR For African Americans > 60 (> 60); eGFR For Non-African Americans > 60 (> 60)
[2019-04-13] MEDS: Insulin LISPRO 300 UNITS/3 ML VIAL SQ SCH ×4 (08:28→20:59)
[2019-04-13] MEDS: Aspirin Enteric Coated 81 MG Tablet PO SCH (08:32)
[2019-04-13] MEDS: cefTRIAXone 1,000 MG in Water for inj. (sterile) 10 ML IVP SCH (08:33)
[2019-04-13] MEDS ORDERED: Perflutren Lipid Microsphere 1.3 ML in 0.9 % Sodium Chloride 8.7 ML IVP ONE (10:42)
[2019-04-13] MEDS ORDERED: Perflutren Lipid Microsphere 2 ML VIAL ONE (10:45)
[2019-04-13] MEDS: Azithromycin 500 MG in 0.9 % Sodium Chloride 250 ML IVPB SCH (14:45)
[2019-04-13] MEDS: Melatonin 3 MG TABLET PO SCH (20:41)
[2019-04-14 04:20] LABS: Hematocrit 25.7 % (37.5-50.1); Hemoglobin 8.2 g/dL (12.9-16.9); Mean Corpuscular HGB Conc 31.9 g/dL (31.6-35.5); Mean Corpuscular Hemoglobin 29.6 pg (28.0-33.3); Mean Corpuscular Volume 92.8 fL (83.0-100.0); Mean Platelet Volume 9.1 fL (9.4-12.4); Platelet Count 385 K/mcL (140-400); Red Blood Count 2.77 M/mcL (4.19-5.50); Red Cell Distribution Width 18.1 % (11.5-14.5); White Blood Count 11.9 K/mcL (4.3-11.1)
[2019-04-14 04:37] LABS: BUN/Creatinine Ratio 19 (6-26); Blood Urea Nitrogen 14 mg/dL (8-23); Calcium 7.8 mg/dL (8.6-10.3); Carbon Dioxide 23 mEq/L (23-29); Chloride 107 mEq/L (98-107); Glucose 108 mg/dL (70-105); Osmolality,Calculated 283 (280-300); Potassium 3.6 mEq/L (3.5-5.1); Sodium 136 mEq/L (136-145); eGFR For African Americans > 60 (> 60); eGFR For Non-African Americans > 60 (> 60)
[2019-04-14] MEDS: Insulin LISPRO 300 UNITS/3 ML VIAL SQ SCH ×4 (09:13→22:30)
[2019-04-14] MEDS: cefTRIAXone 1,000 MG in Water for inj. (sterile) 10 ML IVP SCH (09:14)
[2019-04-14] MEDS: Aspirin Enteric Coated 81 MG Tablet PO SCH (09:14)
[2019-04-14] MEDS: Azithromycin 500 MG in 0.9 % Sodium Chloride 250 ML IVPB SCH (14:51)
[2019-04-14] MEDS: Morphine Sulfate ER (12 HR) 15 MG TABLET.ER PO SCH (17:00)
[2019-04-14] MEDS: Melatonin 3 MG TABLET PO SCH (22:33)
[2019-04-15 04:58] LABS: Hematocrit 25.5 % (37.5-50.1); Hemoglobin 7.7 g/dL (12.9-16.9); Mean Corpuscular HGB Conc 30.2 g/dL (31.6-35.5); Mean Corpuscular Hemoglobin 29.1 pg (28.0-33.3); Mean Corpuscular Volume 96.2 fL (83.0-100.0); Mean Platelet Volume 9.2 fL (9.4-12.4); Platelet Count 394 K/mcL (140-400); Red Blood Count 2.65 M/mcL (4.19-5.50); Red Cell Distribution Width 17.9 % (11.5-14.5); White Blood Count 9.9 K/mcL (4.3-11.1)
[2019-04-15 05:18] LABS: BUN/Creatinine Ratio 22 (6-26); Blood Urea Nitrogen 15 mg/dL (8-23); Calcium 7.8 mg/dL (8.6-10.3); Carbon Dioxide 24 mEq/L (23-29); Chloride 105 mEq/L (98-107); Glucose 122 mg/dL (70-105); Osmolality,Calculated 284 (280-300); Potassium 3.4 mEq/L (3.5-5.1); Sodium 136 mEq/L (136-145); eGFR For African Americans > 60 (> 60); eGFR For Non-African Americans > 60 (> 60)
[2019-04-15] MEDS: Morphine Sulfate ER (12 HR) 15 MG TABLET.ER PO SCH (05:42)
[2019-04-15] MEDS: Aspirin Enteric Coated 81 MG Tablet PO SCH (07:28)
[2019-04-15] MEDS: cefTRIAXone 1,000 MG in Water for inj. (sterile) 10 ML IVP SCH (07:28)
[2019-04-15] MEDS: Insulin LISPRO 300 UNITS/3 ML VIAL SQ SCH ×2 (07:40→12:18)
[2019-04-15 11:43] VITALS: BP 124/66
== END 2019-04-15 15:30 | DRG 535 ==
LOC: 3NENU
PROVIDERS: ADMIT Internal Medicine; ATTEND Internal Medicine